=== PATIENT | female | born 1955 | race Caucasian/White ===

== ENCOUNTER 2018-01-07 20:06 | Emergency (ER) | payer OTHER, SELFPAY ==
[2018-01-07 20:16] VITALS: BP 179/104; PULSE 97; RESP 18; TEMP 36.4; O2SAT 98; BMI 33.3
--- NOTE | 2018-01-07 20:17 | ED_ITS ---
HPI - Chest Pain General Chief Complaint: Chest Pain Stated Complaint: CHEST PAIN Time Seen by Provider: 01/07/18 20:15 History of Present Illness HPI narrative: Patient is a 62-year-old female presenting with chest pain. She had a non ST elevated [place] I end of November in [place]. She said she had a heart catheterization which she has pictures of a arterial lesion which was not stented due to location. She was treated medically. She has been taking her medications regularly. For the last 2 days she had intermittent chest pressure/ stabbing. It last for a few seconds and then is gone. Today it became more frequent every couple of minutes. She is not notice if it is worse with exertion or movement. She also just arrived from [place] yesterday. She chronically has shortness of breath she has a history of asthma hard to tell if her breathing is any worse. She denies any fever or productive cough. She has nitro at home but did not take any of them. She has had a dry nonproductive cough since the heart attack in November. Initially thought it was medication reaction she was switched medication she continues to have cough no productive sputum it is not any worse than normal. Related Data Previous Rx's Medication Instructions Recorded benzonatate [Tessalon Perles] 100 mg PO Q4H PRN #30 cap 01/07/18 Allergies Allergy/AdvReac Type Severity Reaction Status Date / Time bee pollen Allergy Verified 01/07/18 20:23 codeine Allergy Verified 01/07/18 20:23 iodine Allergy Verified 01/07/18 20:23 latex Allergy Verified 01/07/18 20:23 morphine Allergy Verified 01/07/18 20:23 Penicillins Allergy Verified 01/07/18 20:23 Sulfa (Sulfonamide Allergy Verified 01/07/18 20:23 Antibiotics) Review of Systems Review of Systems All systems reviewed & are unremarkable except as noted in HPI and below Constitutional Denies chills, Denies fever(s), Denies lethargy and Denies weakness Cardiovascular Reports as per HPI, Reports system reviewed and no additional complaints, except as docu and Denies dyspnea Respiratory Reports system reviewed and no additional complaints, except as docu, Denies change in phlegm color, Reports cough (Dry hacking nonproductive), Denies pain with cough and Denies dyspnea Gastrointestinal Gastrointestinal: Denies abdominal pain, Denies change in bowel habits, Denies diarrhea, Denies nausea and Denies vomiting Musculoskeletal Denies back pain, Denies muscle weakness, Denies numbness and Denies tingling Integumentary/Breasts Denies pruritus, Denies erythema, Denies rash and Denies wounds Neurologic Denies numbness, Denies tingling and Denies weakness PFSH Medical History Non-ST elevated myocardial infarction (Acute) Coronary artery disease (Acute) GERD (gastroesophageal reflux disease) (Acute) Hypertension (Acute) Hyperlipidemia (Acute) Asthma (Acute) Tenosynovitis (Acute) History of hysterectomy (Acute) After cataract, bilateral (Acute) Heart attack (Acute) Rotator cuff injury (Acute) Surgical History History of appendectomy (Acute) Social History marital status: household members: spouse travel history: recent Smoking Status: Never smoker alcohol intake: never substance use type: does not use Exam Initial Vital Signs Initial Vital Signs: Vital Signs Temperature 97.5 F L 01/07/18 20:16 Pulse Rate 97 H 01/07/18 20:16 Respiratory Rate 18 01/07/18 20:16 Blood Pressure 179/104 H 01/07/18 20:16 Pulse Oximetry 98 01/07/18 20:16 Const General: cooperative and well developed Nutritional Appearance: well nourished Orientation: alert, awake, oriented x3 and not confused Neck Neck: normal visual inspection and No JVD Resp Effort & Inspection: normal respiratory effort, able to speak in complete sentences, no respiratory distress and no use of accessory muscles Auscultation: clear to auscultation bilaterally, no rales, no rhonchi and no wheezes Cardio Rate: regular rate Rhythm: regular rhythm Heart Sounds: no click, no gallops, no murmurs and no rubs Pulses: normal peripheral pulses GI Inspection: non-distended Palpation: soft, no hepatosplenomegaly, No guarding, No pulsatile mass and No tender Auscultation: normal bowel sounds Skin General: no rashes or lesions noted, No jaundice and No petechiae Neuro General: alert, awake and oriented x3 Extrem General: normal to inspection, full ROM, no clubbing, cyanosis or edema and no pedal edema Course Orders Ordered: ED Orders 01/07/18 20:10 B Type Natriuretic Peptide Stat Complete Blood Count AUTO DIFF Stat Comprehensive Metabolic Panel Stat Lipase Stat Partial Thromboplastin Time Stat Prothrombin Time INR Stat Troponin with CK Cardiac Panel Stat 01/07/18 20:15 EKG-12 Lead Stat 01/07/18 20:29 CT angio chest PE protocol Stat Sodium Chloride (Normal Saline 0.9%) 1,000 mls @ 150 mls/hr IV CONT JOSE Last Infusion: 01/07/18 22:13 Dose: 0 mls/hr Admin: 01/07/18 20:41 Dose: 1,000 mls/hr Nitroglycerin (Nitrostat) 0.4 mg SL [id number] PRN PRN Reason: Cardiac Arrhythmia Last Admin: 01/07/18 20:29 Dose: 0.4 mg Discontinued Medications Albuterol (Ventolin) 2.5 mg INH NOW ONE Stop: 01/07/18 20:30 Last Admin: 01/07/18 20:36 Dose: 2.5 mg Aspirin (Aspirin Chew) 324 mg PO NOW ONE Stop: 01/07/18 20:16 Last Admin: 01/07/18 20:29 Dose: 324 mg Diphenhydramine HCl (Benadryl) 25 mg IV NOW ONE Stop: 01/07/18 20:30 Last Admin: 01/07/18 20:53 Dose: Methylprednisolone (Solu-Medrol 125 Mg Vial) 125 mg IV NOW ONE Stop: 01/07/18 20:30 Last Admin: 01/07/18 20:38 Dose: 125 mg Nitroglycerin (Nitro-Bid) 2 inch TOP NOW ONE Stop: 01/07/18 20:16 Vital Signs - 8 hr 01/07/18 20:16 01/07/18 20:37 01/07/18 20:41 Temperature 97.5 F L Pulse Rate 97 H 100 H 85 Respiratory Rate 18 20 16 Blood Pressure 179/104 H Blood Pressure [Left Arm] 159/88 H Pulse Oximetry 98 95 96 01/07/18 21:30 01/07/18 22:02 Temperature Pulse Rate 86 85 Respiratory Rate 16 15 Blood Pressure Blood Pressure [Left Arm] 133/66 H 142/68 H Pulse Oximetry 97 97 MDM - Chest Pain Differential Diagnosis Likely stable angina, atypical chest pain, chest pain and other (PE, aortic dissection) Lab Data Attestation: I reviewed the patient's lab results. Result diagrams: 01/07/18 20:10 01/07/18 20:10 Lab Results 06/02/1701/07/18 01/07/18 Range/Units 20:10 20:10 20:10 WBC 6.9 (4.5-11.0) X10^3/uL RBC 4.62 (4.0-5.2) X10^6/uL Hgb 13.6 (12.0-16.0) g/dL Hct 40.5 (36-46) % MCV 87.6 (80-100) fL MCH 29.5 (26-34) PG MCHC 33.7 (30-36) % RDW 14.5 (11.6-14.8) % Plt Count 198 (150-400) X10^3/uL Neut % (Auto) 61.2 (50-75) % Lymph % (Auto) 24.2 L (25-40) % [place] % (Auto) 11.4 (3-14) % Eos % (Auto) 2.4 (2-4) % Baso % (Auto) 0.8 (0-2) % Neut # (Auto) 4200 (0803-7420) /uL PT 10.5 (10.1-12.7) SECONDS INR 1.0 (0.9-1.3) APTT 26 L (26.4-36.2) SECONDS Sodium 143 (137-145) mmol/L Potassium 3.2 L (3.4-5.1) mmol/L Chloride 102 (98-107) mmol/L Carbon Dioxide 27 (22-32) mmol/L BUN 18 H (7-17) mg/dL Creatinine 0.70 (0.52-1.04) mg/dL Estimated GFR > 60.0 (>60) mL/min BUN/Creatinine Ratio 25.7 H (6-22) Glucose 84 (80-110) mg/dL Calcium 10.2 (8.4-10.2) mg/dL Total Bilirubin 0.4 (0.2-1.3) mg/dL AST 40 H (14-36) IU/L ALT 47 (9-52) IU/L Alkaline Phosphatase 54 (38-126) U/L Total Creatine Kinase 94 (30-135) U/L Troponin I < 0.012 (0.01-0.034) ng/mL B-Natriuretic Peptide 106.0 H (<29.3) Total Protein 7.6 (6.3-8.2) g/dL Albumin 4.7 (3.5-5.0) g/dL Globulin 2.9 (1.7-4.1) g/dL Albumin/Globulin Ratio 1.6 (1.0-2.8) Lipase 109 (23-300) U/L Imaging Data CT-PE: Radiologist's impression: PROCEDURE: CT ANGIO CHEST PE PROTOCOL INDICATIONS: Shortness of breath, recent flight and hospital TECHNIQUE: After the administration of intravenous contrast, 2 mm thick sections acquired from the pulmonary apices to the posterior costophrenic angles. 3-dimensional maximum intensity projection (MIP) coronal and sagittal reformats were then acquired through the thorax. For radiation dose reduction, the following was used: automated exposure control, adjustment of mA and/or kV according to patient size. COMPARISON: 04/29/2013. FINDINGS: Image quality: Excellent. Pulmonary arteries: Pulmonary arteries are normal in size, and demonstrate no intraluminal filling defects to suggest central pulmonary embolism. Lungs and pleura: Lungs are clear. No pleural effusions or pneumothorax. Central and peripheral airways are patent. Mediastinum: Heart size is normal, without pericardial effusion. No mediastinal or hilar adenopathy. Thoracic aorta is normal in caliber and enhancement. Esophagus is normal in caliber, with small hiatal hernia. Bones and chest wall: No suspicious bony lesions. Ribs and thoracic spine appear intact throughout. Thyroid gland is normal where seen. No axillary or supraclavicular adenopathy. Abdomen: There is a new 3.5 cm partially visualized inferior right lobe of the liver nodule. upper abdominal solid organs appear normal in the early arterial phase of enhancement. IMPRESSION: 1. No CT evidence of acute cardiopulmonary pathology. 2. New partially visualized hepatic nodule. Recommend evaluation with ultrasound when patient is able. Dictated by: Felice Batista M.D. on 01/07/2018 at 21:41 Approved by: Felice Batista M.D. on 01/07/2018 at 21:47 ECG Data Attestation: I personally reviewed and interpreted this ECG as follows: Prior ECG tracings: not available for review Interpretation: Normal sinus rhythm rate [address]-T changes, Q-waves noted in lead 3 nonspecific T-wave changes. No prior to compare. [facility] Narrative Medical decision making narrative: Patient has had 2 days of intermittent sharp stabbing chest pain lasting only a few seconds. Troponin negative CT negative for PE. Nitroglycerin only helped some. She has appointment with her new primary provider tomorrow. She is supposed to get set up with local engineering psychologist. Her nonproductive cough I think is likely medication related. No sign of infection. I discussed all findings with the patient [and /spouse mother], Education has been performed regarding treatment plan, diagnosis, warning signs and symptoms and all concerns have been addressed. Verbally agree with and understood all of the above. Discharge Plan Departure Patient Disposition: Home, Self-Care Clinical Impression: Atypical chest pain Discharge Date/Time: 01/07/18 22:17 Instructions: DI for Atypical Chest Pain Activity Restrictions/Additional Instructions: *You have been diagnosed with atypical chest pain *What to do: CT and blood work within normal limits at today. *Continue to take medications as directed Candy Callejas as needed *Follow up with your primary care provider tomorrow as previously scheduled. He will need to be set up with Cardiology and possible cardiac rehab *Return to ER if you should have new or worsening chest discomfort, increasing shortness of breath, or any new, worsening or concerning symptoms Prescriptions: New benzonatate [Tessalon Perles] 100 mg capsule 100 mg PO Q4H PRN (Reason: cough) Qty: 30 RF: 0 Referrals: [facility] [Outside] Loni Smith ARNP [Non-Staff] - Magaly Rivera PA-C [Primary Care Provider] -
[2018-01-07] MEDS: ASPIRIN 81 MG TAB 324 MG PO (20:29)
[2018-01-07] MEDS: NITROGLYCERIN 0.4 MG SL TAB SL (20:29)
--- NOTE | 2018-01-07 20:29 | DI.CT.S_ITS ---
PROCEDURE: CT ANGIO CHEST PE PROTOCOL INDICATIONS: Shortness of breath, recent flight and hospital TECHNIQUE: After the administration of intravenous contrast, 2 mm thick sections acquired from the pulmonary apices to the posterior costophrenic angles. 3-dimensional maximum intensity projection (MIP) coronal and sagittal reformats were then acquired through the thorax. For radiation dose reduction, the following was used: automated exposure control, adjustment of mA and/or kV according to patient size. COMPARISON: 04/29/2013. FINDINGS: Image quality: Excellent. Pulmonary arteries: Pulmonary arteries are normal in size, and demonstrate no intraluminal filling defects to suggest central pulmonary embolism. Lungs and pleura: Lungs are clear. No pleural effusions or pneumothorax. Central and peripheral airways are patent. Mediastinum: Heart size is normal, without pericardial effusion. No mediastinal or hilar adenopathy. Thoracic aorta is normal in caliber and enhancement. Esophagus is normal in caliber, with small hiatal hernia. Bones and chest wall: No suspicious bony lesions. Ribs and thoracic spine appear intact throughout. Thyroid gland is normal where seen. No axillary or supraclavicular adenopathy. Abdomen: There is a new 3.5 cm partially visualized inferior right lobe of the liver nodule. upper abdominal solid organs appear normal in the early arterial phase of enhancement. IMPRESSION: 1. No CT evidence of acute cardiopulmonary pathology. 2. New partially visualized hepatic nodule. Recommend evaluation with ultrasound when patient is able. Dictated by: Felice Batista M.D. on 01/07/2018 at 21:41 Approved by: Felice Batista M.D. on 01/07/2018 at 21:47
[2018-01-07 20:32] LABS: Add Manual Diff / Slide Review NO; Basophils Percent Auto 0.8 % (0-2); Eosinophils Percent Auto 2.4 % (2-4); Hematocrit 40.5 % (36-46); Hemoglobin 13.6 g/dL (12.0-16.0); Lymphocytes Percent Auto 24.2 % (25-40); Mean Corpuscular HGB Conc 33.7 % (30-36); Mean Corpuscular Hemoglobin 29.5 PG (26-34); Mean Corpuscular Volume 87.6 fL (80-100); Monocytes Percent Auto 11.4 % (3-14); Neutrophils Absolute Auto 4200 /uL (3000-5900); Neutrophils Percent Auto 61.2 % (50-75); Platelet Count 198 X10^3/uL (150-400); Red Blood Cell Count 4.62 X10^6/uL (4.0-5.2); Red Cell Distribution Width 14.5 % (11.6-14.8); White Blood Cell Count 6.9 X10^3/uL (4.5-11.0)
[2018-01-07 20:33] LABS: Prothrombin Time 10.5 SECONDS (10.1-12.7)
[2018-01-07 20:36] LABS: PTT Partial Thromboplastin Tim 26 SECONDS (26.4-36.2)
[2018-01-07] MEDS: ALBUTEROL 2.5 MG/3 ML NEB INH (20:36)
[2018-01-07 20:37] VITALS: BP 159/88; PULSE 100; RESP 20; O2SAT 95
[2018-01-07] MEDS: methylPREDNISolone 125 MG/2 ML VIAL IV (20:38)
[2018-01-07 20:39] LABS: Alanine Aminotransferase 47 IU/L (9-52); Albumin 4.7 g/dL (3.5-5.0); Albumin Globulin Ratio 1.6 (1.0-2.8); Alkaline Phosphatase 54 U/L (38-126); Aspartate Aminotransferase 40 IU/L (14-36); BUN Creatinine Ratio 25.7 (6-22); Bilirubin Total 0.4 mg/dL (0.2-1.3); Blood Urea Nitrogen 18 mg/dL (7-17); Calcium 10.2 mg/dL (8.4-10.2); Carbon Dioxide 27 mmol/L (22-32); Chloride 102 mmol/L (98-107); Creatine Kinase 94 U/L (30-135); Estimated Glomerular Filt Rate > 60.0 mL/min (>60); Globulin 2.9 g/dL (1.7-4.1); Glucose 84 mg/dL (80-110); HEMOLYSIS < 15 (0-50); Lipase 109 U/L (23-300); Potassium 3.2 mmol/L (3.4-5.1); Sodium 143 mmol/L (137-145); Total Protein 7.6 g/dL (6.3-8.2)
[2018-01-07 20:41] VITALS: PULSE 85; RESP 16; O2SAT 96
[2018-01-07] MEDS: SODIUM CHLORIDE 0.9% 1,000 ML 1000 ML IV (20:41)
[2018-01-07 20:51] LABS: Troponin I < 0.012 ng/mL (0.01-0.034)
[2018-01-07 21:30] VITALS: BP 133/66; PULSE 86; RESP 16; O2SAT 97
[2018-01-07 22:02] VITALS: BP 142/68; PULSE 85; RESP 15; O2SAT 97
[2018-01-07 22:17] VITALS: BP 148/64; PULSE 74; RESP 18; TEMP 36.9; O2SAT 99
== END 2018-01-07 22:17 | disposition home or self-care (01) ==
PROVIDERS: Emergency Provider Emergency Medicine; PCP Physician Assistant
DX: R07.89 Other chest pain (principal)
CPT/HCPCS: 36591; 71275; 80053; 82550; 82553; 83690; 83880; 84484; 85025; 85610; 85730; 93005; 94640; 96374; 96375; 99283; 99285; J1200; J2930; J7613; Q9967

== ENCOUNTER → 2018-02-26 07:32 | Outpatient (CLI) | payer OTHER, SELFPAY ==
--- NOTE | 2018-02-26 | DI.US.S_ITS ---
PROCEDURE: US ABDOMEN LIMITED INDICATIONS: HEPATIC NODULE TECHNIQUE: Real-time focused scanning was performed of the abdomen, with image documentation. COMPARISON: [facility], CT, CT ANGIO CHEST PE PROTOCOL, 01/07/2018, 20:46. FINDINGS: The partially visualized hepatic nodule on prior CT imaging is shown to represent a simple cyst in the anterior, inferior pole of the right lobe of the liver. The cysts measures 3.7 x 4.7 x 5.0 cm. No other liver lesions seen. IMPRESSION: Simple hepatic cyst Dictated by: Arjun Bailye M.D. on 02/26/2018 at 9:56 Approved by: Arjun Bailey M.D. on 02/26/2018 at 9:58
== END ==
PROVIDERS: PCP Physician Assistant; Visit Provider Nurse Practitioner Family
DX: K76.89 Other specified diseases of liver (principal)
CPT/HCPCS: 76705

== ENCOUNTER → 2020-02-24 15:06 | Outpatient (CLI) | payer MEDICARE, SELFPAY | PROVIDERS: PCP Internal Medicine; Referring Provider Internal Medicine; Visit Provider Internal Medicine | DX: M85.851 Other specified disorders of bone density and structure, right thigh (principal); Z78.0 Asymptomatic menopausal state | CPT/HCPCS: 77080 ==

== ENCOUNTER → 2020-08-30 14:35 | Outpatient (CLI) | payer MEDICARE, SELFPAY ==
[2020-08-30] MEDS: COVID-19 VACC #1, MRNA(MOD) 100 MCG/0.5 ML VIAL IM (14:40)
== END ==
PROVIDERS: PCP Internal Medicine; Visit Provider Internal Medicine
DX: Z23 Encounter for immunization (principal)
CPT/HCPCS: 0011A; 91301

== ENCOUNTER → 2020-09-05 17:05 | Outpatient (ROUT) | payer MEDICARE, SELFPAY ==
[2020-09-05 17:15] LABS: Add Manual Diff / Slide Review NO; Basophils Absolute Auto 100 /uL (0-100); Basophils Percent Auto 1.1 % (0-2); Eosinophils Absolute Auto 200 /uL (0-450); Hematocrit 41.6 % (36-46); Hemoglobin 13.8 g/dL (12.0-16.0); Lymphocytes Absolute Auto 1400 /uL (1100-4500); Lymphocytes Percent Auto 29.4 % (25-40); Mean Corpuscular HGB Conc 33.2 % (30-36); Mean Corpuscular Hemoglobin 28.4 PG (26-34); Mean Corpuscular Volume 85.5 fL (80-100); Monocytes Absolute Auto 600 /uL (0-900); Monocytes Percent Auto 11.7 % (3-14); Neutrophils Absolute Auto 2500 /uL (1500-7000); Neutrophils Percent Auto 52.8 % (50-75); Platelet Count 211 X10^3/uL (150-400); Red Blood Cell Count 4.86 X10^6/uL (4.0-5.2); White Blood Cell Count 4.8 X10^3/uL (4.5-11.0)
[2020-09-05 17:30] LABS: Alanine Aminotransferase 64 IU/L (<35); Albumin 4.3 g/dL (3.5-5.0); Albumin Globulin Ratio 1.5 (1.0-2.8); Alkaline Phosphatase 63 U/L (38-126); Aspartate Aminotransferase 40 IU/L (14-36); BUN Creatinine Ratio 23.8 (6-22); Bilirubin Total 0.3 mg/dL (0.2-1.3); Blood Urea Nitrogen 19 mg/dL (7-17); Calcium 9.8 mg/dL (8.4-10.2); Carbon Dioxide 34 mmol/L (22-32); Chloride 99 mmol/L (98-107); Cholesterol 173 mg/dL (140-199); Estimated Glomerular Filt Rate > 60.0 mL/min (>60); Globulin 2.9 g/dL (1.7-4.1); Glucose 113 mg/dL (80-110); HDL Cholesterol 93 mg/dL (40-60); HEMOLYSIS < 15 (0-50); LDL Cholesterol Calculated 66 mg/dL (<100); Potassium 4.2 mmol/L (3.4-5.1); Sodium 138 mmol/L (137-145); Total Protein 7.2 g/dL (6.3-8.2); Triglycerides 70 mg/dL (35-150)
[2020-09-05 18:00] LABS: TSH w/ Reflex to FT4 3.51 uIU/mL (0.47-4.68)
== END ==
PROVIDERS: PCP Internal Medicine; Visit Provider Internal Medicine
DX: I25.10 Atherosclerotic heart disease of native coronary artery without angina pectoris (principal); E78.70 Disorder of bile acid and cholesterol metabolism, unspecified
CPT/HCPCS: 80053; 80061; 84443; 85025

== ENCOUNTER → 2020-09-27 14:27 | Outpatient (CLI) | payer MEDICARE, SELFPAY ==
[2020-09-27] MEDS: COVID-19 VACC #2, MRNA(MOD) 100 MCG/0.5 ML VIAL IM (14:42)
== END ==
PROVIDERS: PCP Internal Medicine; Visit Provider Internal Medicine
DX: Z23 Encounter for immunization (principal)
CPT/HCPCS: 0012A; 91301

== ENCOUNTER 2020-12-05 14:12 | Emergency (ER) | payer MEDICARE, SELFPAY ==
[2020-12-05] VITALS (13 sets, daily range): BP systolic 139–201; BP diastolic 75–95; PULSE 74–104; RESP 12–24; TEMP 36.4; O2SAT 96–98; BMI 36.5
--- NOTE | 2020-12-05 14:23 | DI.RAD.S_ITS ---
PROCEDURE: XR CHEST 1V INDICATIONS: chest pain TECHNIQUE: One view of the chest was acquired. COMPARISON: [facility], , CHEST 2 VIEW, 04/28/2013, 13:54. FINDINGS: Surgical changes and devices: None. Lungs and pleura: Lungs are clear. No pleural effusions or pneumothorax. Mediastinum: Mediastinal contours appear normal. Heart size is normal. Bones and chest wall: No suspicious bony lesions. Overlying soft tissues appear unremarkable. IMPRESSION: Normal for age, source of current chest pain symptoms is not seen. Dictated by: Martir Callahan M.D. on 12/05/2020 at 14:45 Approved by: Martir Callahan M.D. on 12/05/2020 at 14:46
--- NOTE | 2020-12-05 14:26 | ED.CHESTPAIN ---
HPI - Chest Pain General Chief Complaint: Chest Pain Stated Complaint: heart issues Time Seen by Provider: 12/05/20 14:26 Source: patient Mode of arrival: Ambulatory Limitations: no limitations History of Present Illness HPI narrative: Patient is a 65-year-old female who is here for evaluation of shortness of breath and chest discomfort. She has had evaluation for chest pain in the past and had a cardiac catheterization however no stents were placed. She states that there was 1 artery which could not be stented due to the anatomy.. She does have nitro at home. Over the past week she has had progressively worsening chest discomfort. Last evening she had the chest discomfort and took a nitro and relieved her symptoms. Today symptoms seem to come back somewhat. She did not take a nitro today. She feels very fatigued which is how she felt prior to prior heart attack. Related Data Home Medications Medication Instructions Recorded Confirmed amlodipine 5 mg PO DAILY 12/05/20 12/05/20 aspirin 81 mg PO DAILY 12/05/20 12/05/20 atorvastatin 20 mg PO DAILY 12/05/20 12/05/20 clopidogrel 75 mg PO DAILY 12/05/20 12/05/20 hydrochlorothiazide 25 mg PO DAILY 12/05/20 12/05/20 nitroglycerin 0.4 mg SUBLINGUAL PRN PRN 12/05/20 12/05/20 pantoprazole 40 mg PO BID 12/05/20 12/05/20 venlafaxine 37.5 mg PO DAILY 12/05/20 12/05/20 venlafaxine [Effexor XR] 37.5 mg PO DAILY 12/05/20 12/05/20 Allergies Allergy/AdvReac Type Severity Reaction Status Date / Time bee pollen Allergy Verified 01/07/18 20:23 codeine Allergy Verified 01/07/18 20:23 iodine Allergy Verified 01/07/18 20:23 latex Allergy Verified 01/07/18 20:23 morphine Allergy Verified 01/07/18 20:23 Penicillins Allergy Verified 01/07/18 20:23 Sulfa (Sulfonamide Allergy Verified 01/07/18 20:23 Antibiotics) Review of Systems ENT Ears, Nose, Mouth, and Throat: Denies sore throat Cardiovascular Cardiovascular: Reports chest pain and Reports dyspnea Respiratory Respiratory: Reports dyspnea Gastrointestinal Gastrointestinal: Denies abdominal pain, Denies nausea and Denies vomiting Genitourinary Genitourinary: Denies dysuria Genitourinary: Denies dysuria Musculoskeletal Musculoskeletal: Reports back pain Integumentary/Breasts Skin/Breast: Denies rash Neurologic Neurologic: Denies behavioral changes Psychiatric Psychiatric: Denies behavioral changes Hematologic/Lymphatic On Anticoagulants: No Allergic/Immunologic Allergic/Immunologic: Denies urticaria Patient History Medical History After cataract, bilateral Asthma Coronary artery disease GERD (gastroesophageal reflux disease) Heart attack Hyperlipidemia Hypertension Non-ST elevated myocardial infarction Rotator cuff injury Tenosynovitis Surgical History (Updated 01/07/18 @ 21:50 by Albertina La DO) History of appendectomy History of hysterectomy Social History marital status: household members: spouse travel history: recent Smoking Status: Never smoker alcohol intake: never substance use type: does not use Smoking Status: Never smoker alcohol intake frequency: 0-2 drinks per day Substance Use Type: does not use Exam Initial Vital Signs Initial Vital Signs: Vital Signs Pulse Rate 104 H 12/05/20 14:18 Respiratory Rate 24 12/05/20 14:18 Blood Pressure 201/95 H 12/05/20 14:18 Pulse Oximetry 98 12/05/20 14:18 Const General: cooperative and comfortable Limitations: mental status not altered HENMT Head: normal to inspection and normocephalic Eyes General: appearance normal, both eyes and all related structures Resp Effort & Inspection: normal respiratory effort Auscultation: clear to auscultation bilaterally Cardio Rate: tachycardic Rhythm: regular rhythm GI Inspection: non-distended Palpation: soft Skin Lesions: no lesions Rashes: no rashes Neuro General: patient alert, patient awake and patient oriented x3 Cognition: normal cognition Speech: speech normal Extrem General: normal to inspection and capillary refill normal Psych Appearance: grossly normal and well kempt Course Orders Ordered: ED Orders 12/05/20 14:23 XR chest 1V Stat EKG-12 Lead Stat 12/05/20 14:28 Complete Blood Count AUTO DIFF Stat Comprehensive Metabolic Panel Stat Lipase Stat Partial Thromboplastin Time Stat Prothrombin Time INR Stat Troponin & CK Cardiac Panel Stat 12/05/20 14:55 EKG-12 Lead Stat 12/05/20 18:10 Troponin I Stat Discontinued Medications Aspirin (Aspirin 81 Mg Chew Tab) 324 mg PO NOW ONE Stop: 12/05/20 14:55 Last Admin: 12/05/20 14:58 Dose: 243 mg Documented by: ES Nitroglycerin (Nitroglycerin Oint 1 Inch/Gm Oint...G.) 0.5 inch TOP NOW ONE Stop: 12/05/20 14:55 Last Admin: 12/05/20 14:58 Dose: 0.5 inch Documented by: ES Vital Signs Vital signs: Vital Signs - 8 hr 12/05/20 14:18 12/05/20 14:23 12/05/20 14:30 Temperature 97.6 F Pulse Rate 104 H 101 H 86 Respiratory Rate 24 18 12 Blood Pressure 201/95 H 201/95 H 162/78 H Pulse Oximetry 98 96 98 12/05/20 14:58 12/05/20 15:00 12/05/20 15:05 Temperature Pulse Rate 80 83 78 Respiratory Rate 24 18 Blood Pressure 162/78 H 154/88 H 152/86 H Pulse Oximetry 97 97 12/05/20 15:10 12/05/20 15:15 12/05/20 15:20 Temperature Pulse Rate 79 77 74 Respiratory Rate 22 18 16 Blood Pressure 157/87 H 143/81 H 139/79 Pulse Oximetry 97 98 96 12/05/20 15:25 12/05/20 15:30 12/05/20 15:35 Temperature Pulse Rate 79 75 77 Respiratory Rate 22 16 18 Blood Pressure 168/79 H 155/79 H 142/75 H Pulse Oximetry 97 97 97 MDM - Chest Pain Lab Data Attestation: I reviewed the patient's lab results. Result diagrams: 12/05/20 14:28 12/05/20 14:28 Labs: Lab Results 12/05/20 12/05/20 12/05/20 Range/Units 14:28 14:28 14:28 WBC 5.9 (4.5-11.0) X10^3/uL RBC 4.62 (4.0-5.2) X10^6/uL Hgb 13.2 (12.0-16.0) g/dL Hct 38.9 (36-46) % MCV 84.3 (80-100) fL MCH 28.6 (26-34) PG MCHC 33.9 (30-36) % RDW 15.4 H (11.6-14.8) % Plt Count 209 (150-400) X10^3/uL Neut % (Auto) 48.4 L (50-75) % Lymph % (Auto) 33.1 (25-40) % [place] % (Auto) 14.5 H (3-14) % Eos % (Auto) 3.0 (2-4) % Baso % (Auto) 1.0 (0-2) % Neut # (Auto) 2800 (3122-5894) /uL Lymph # (Auto) 1900 (8752-4338) /uL [place] # (Auto) 900 (0-900) /uL Eos # (Auto) 200 (0-450) /uL Baso # (Auto) 100 (0-100) /uL PT 10.0 L (10.1-12.7) SECONDS INR 0.9 (0.9-1.3) APTT 28 (26.4-36.2) SECONDS Sodium 136 L (137-145) mmol/L Potassium 3.1 L (3.4-5.1) mmol/L Chloride 100 (98-107) mmol/L Carbon Dioxide 27 (22-32) mmol/L BUN 20 H (7-17) mg/dL Creatinine 0.68 (0.52-1.04) mg/dL Estimated GFR > 60.0 (>60) mL/min BUN/Creatinine Ratio 29.4 H (6-22) Glucose 129 H (80-110) mg/dL Calcium 9.9 (8.4-10.2) mg/dL Total Bilirubin 0.3 (0.2-1.3) mg/dL AST 51 H (14-36) IU/L ALT 77 H (<35) IU/L Alkaline Phosphatase 70 (38-126) U/L Total Creatine Kinase 186 H (30-135) U/L CK-MB (CK-2) 1.75 (<2.37) ng/mL CK-MB (CK-2) Rel Index 0.9 L (1.5-5.0) % Troponin I < 0.012 (0.01-0.034) ng/mL Total Protein 7.3 (6.3-8.2) g/dL Albumin 4.5 (3.5-5.0) g/dL Globulin 2.8 (1.7-4.1) g/dL Albumin/Globulin Ratio 1.6 (1.0-2.8) Lipase 81 (23-300) U/L /12/21 Range/Units 18:10 WBC (4.5-11.0) X10^3/uL RBC (4.0-5.2) X10^6/uL Hgb (12.0-16.0) g/dL Hct (36-46) % MCV (80-100) fL MCH (26-34) PG MCHC (30-36) % RDW (11.6-14.8) % Plt Count (150-400) X10^3/uL Neut % (Auto) (50-75) % Lymph % (Auto) (25-40) % [place] % (Auto) (3-14) % Eos % (Auto) (2-4) % Baso % (Auto) (0-2) % Neut # (Auto) (4863-0743) /uL Lymph # (Auto) (6094-1756) /uL [place] # (Auto) (0-900) /uL Eos # (Auto) (0-450) /uL Baso # (Auto) (0-100) /uL PT (10.1-12.7) SECONDS INR (0.9-1.3) APTT (26.4-36.2) SECONDS Sodium (137-145) mmol/L Potassium (3.4-5.1) mmol/L Chloride (98-107) mmol/L Carbon Dioxide (22-32) mmol/L BUN (7-17) mg/dL Creatinine (0.52-1.04) mg/dL Estimated GFR (>60) mL/min BUN/Creatinine Ratio (6-22) Glucose (80-110) mg/dL Calcium (8.4-10.2) mg/dL Total Bilirubin (0.2-1.3) mg/dL AST (14-36) IU/L ALT (<35) IU/L Alkaline Phosphatase (38-126) U/L Total Creatine Kinase (30-135) U/L CK-MB (CK-2) (<2.37) ng/mL CK-MB (CK-2) Rel Index (1.5-5.0) % Troponin I < 0.012 (0.01-0.034) ng/mL Total Protein (6.3-8.2) g/dL Albumin (3.5-5.0) g/dL Globulin (1.7-4.1) g/dL Albumin/Globulin Ratio (1.0-2.8) Lipase (23-300) U/L Imaging Data Chest x-ray: Radiologist's Impression: [address] [id number] ReportSigned Patient: Faith Davison AMR#: [id number]: 4Acct:[id number]/Sex: 65 / FDate of Service: 12/05/20Loc: EDAccession Number: [id number] Procedure: XR chest 1V Ordering Provider: Guy Tilley D.O. PROCEDURE: XR CHEST 1V INDICATIONS: chest pain TECHNIQUE: One view of the chest was acquired. COMPARISON: [facility], CHEST 2 VIEW, 04/28/2013, 13:54. FINDINGS: Surgical changes and devices: None. Lungs and pleura: Lungs are clear. No pleural effusions or pneumothorax. Mediastinum: Mediastinal contours appear normal. Heart size is normal. Bones and chest wall: No suspicious bony lesions. Overlying soft tissues appear unremarkable. IMPRESSION: Normal for age, source of current chest pain symptoms is not seen. Dictated by: Martir Callahan M.D. on 12/05/2020 at 14:45 Approved by: Martir Callahan M.D. on 12/05/2020 at 14:46 ECG Data Attestation: I personally reviewed and interpreted this ECG as follows: Prior ECG tracings: not available for review Interpretation: Sinus rhythm Ventricular rate 94 Sinus arrhythmia Normal QRS Normal QTC No ST T wave changes Repeat EKG Sinus rhythm Ventricular rate is 78 Normal QRS Normal QTC No ST T wave changes MDM Narrative Medical decision making narrative: Patient has 2 nonischemic EKGs. Her troponins are negative x2 with the 2nd greater than 3 hours after the 1st. Given her history and the fact that her symptoms improved with nitro I do have some moderate concerned about ACS. I did discuss with her risks with this. We did discuss options to include being discharged home versus staying for 2nd troponin versus being transferred for further risk stratification to include stress testing and potential catheterization. We did discuss the risks and benefits of all of these options. After this discussion she opted to stay for the 2nd troponin which was eventually negative. She has nitroglycerin at home. 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 She was given strict return precautions. She expressed understanding and agreement. Discharge Plan Departure Patient Disposition: Home Clinical Impression: Chest pain Instructions: DI for Chest Pain Activity Restrictions/Additional Instructions: After our discussion you opted to be discharged home after the 2nd troponin (both of which were negative) which is very reassuring. I recommend you continue all of your medications as directed. Contact your primary doctor and also your pipe smoking machine offbearer for close follow-up and to discuss the indications for stress test. Please return to the emergency department for any new or worsening symptoms Prescriptions: No Action venlafaxine [Effexor XR] 37.5 mg capsule,extended release 24hr 37.5 mg PO DAILY RF: 0 venlafaxine 37.5 mg capsule,extended release 24hr 37.5 mg PO DAILY RF: 0 atorvastatin 20 mg tablet 20 mg PO DAILY RF: 0 clopidogrel 75 mg tablet 75 mg PO DAILY RF: 0 amlodipine 5 mg tablet 5 mg PO DAILY RF: 0 pantoprazole 40 mg tablet,delayed release (DR/EC) 40 mg PO BID RF: 0 nitroglycerin 0.4 mg tablet, sublingual 0.4 mg sublingual PRN PRN (Reason: Chest Pain) RF: 0 hydrochlorothiazide 25 mg tablet 25 mg PO DAILY RF: 0 aspirin 81 mg PO DAILY RF: 0 Referrals: Edgar Stockton MD [Primary Care Provider] -
[2020-12-05] MEDS: ASPIRIN 81 MG CHEW TAB 324 MG PO (14:58)
[2020-12-05] MEDS: NITROGLYCERIN OINT 1 INCH/GM OINT...G. 0.5 INCH TOP (14:58)
--- NOTE | 2020-12-05 15:07 | PC.NURSE ---
Pt reports pressure increased and now having some pain in her middle back like she was last night. MD notified. Orders received for aspirin and nitro paste. Repeat EKG being done now.
[2020-12-05 15:11] LABS: Add Manual Diff / Slide Review NO; Basophils Absolute Auto 100 /uL (0-100); Eosinophils Absolute Auto 200 /uL (0-450); Hematocrit 38.9 % (36-46); Hemoglobin 13.2 g/dL (12.0-16.0); Lymphocytes Absolute Auto 1900 /uL (1100-4500); Lymphocytes Percent Auto 33.1 % (25-40); Mean Corpuscular HGB Conc 33.9 % (30-36); Mean Corpuscular Hemoglobin 28.6 PG (26-34); Mean Corpuscular Volume 84.3 fL (80-100); Monocytes Absolute Auto 900 /uL (0-900); Monocytes Percent Auto 14.5 % (3-14); Neutrophils Absolute Auto 2800 /uL (1500-7000); Neutrophils Percent Auto 48.4 % (50-75); Platelet Count 209 X10^3/uL (150-400); Red Blood Cell Count 4.62 X10^6/uL (4.0-5.2); Red Cell Distribution Width 15.4 % (11.6-14.8); White Blood Cell Count 5.9 X10^3/uL (4.5-11.0)
[2020-12-05 15:17] LABS: INR 0.9 (0.9-1.3)
[2020-12-05 15:20] LABS: PTT Partial Thromboplastin Tim 28 SECONDS (26.4-36.2)
[2020-12-05 15:22] LABS: Alanine Aminotransferase 77 IU/L (<35); Albumin 4.5 g/dL (3.5-5.0); Albumin Globulin Ratio 1.6 (1.0-2.8); Alkaline Phosphatase 70 U/L (38-126); Aspartate Aminotransferase 51 IU/L (14-36); BUN Creatinine Ratio 29.4 (6-22); Bilirubin Total 0.3 mg/dL (0.2-1.3); Blood Urea Nitrogen 20 mg/dL (7-17); Calcium 9.9 mg/dL (8.4-10.2); Carbon Dioxide 27 mmol/L (22-32); Chloride 100 mmol/L (98-107); Creatine Kinase 186 U/L (30-135); Estimated Glomerular Filt Rate > 60.0 mL/min (>60); Globulin 2.8 g/dL (1.7-4.1); Glucose 129 mg/dL (80-110); HEMOLYSIS < 15 (0-50); Lipase 81 U/L (23-300); Potassium 3.1 mmol/L (3.4-5.1); Sodium 136 mmol/L (137-145); Total Protein 7.3 g/dL (6.3-8.2)
[2020-12-05 15:34] LABS: Troponin I < 0.012 ng/mL (0.01-0.034)
[2020-12-05 15:37] LABS: CKMB % Relative Index 0.9 % (1.5-5.0); Creatine Kinase MB 1.75 ng/mL (<2.37)
[2020-12-05 18:38] LABS: Troponin I < 0.012 ng/mL (0.01-0.034)
== END 2020-12-05 19:00 | disposition home or self-care (01) ==
PROVIDERS: Emergency Provider Emergency Medicine; PCP Internal Medicine
DX: R07.9 Chest pain, unspecified (principal); R06.02 Shortness of breath
CPT/HCPCS: 36415; 71045; 80053; 82550; 82553; 83690; 84484; 85025; 85610; 85730; 93005; 99284

== ENCOUNTER → 2020-12-19 15:09 | Outpatient (ROUT) | payer MEDICARE, SELFPAY ==
[2020-12-20 09:06] LABS: Hepatitis B Surf Ab Qualitativ Non Reactive (.)
[2020-12-20 16:32] LABS: Hepatitis B Surface Antigen NEGATIVE s/c (NEGATIVE)
[2020-12-20 16:44] LABS: Hep C Virus Ab w/Reflex Quant NEGATIVE s/c (NEGATIVE)
== END ==
PROVIDERS: PCP Internal Medicine; Visit Provider Internal Medicine
DX: R94.5 Abnormal results of liver function studies (principal); Z20.5 Contact with and (suspected) exposure to viral hepatitis
CPT/HCPCS: 86706; 86803; 87340

== ENCOUNTER → 2021-01-23 11:29 | Outpatient (CLI) | payer MEDICARE, SELFPAY ==
[2021-01-23 12:52] LABS: COVID19 -Nasal RAPID Negative (Negative)
== END ==
PROVIDERS: PCP Internal Medicine; Visit Provider Physician Assistant
DX: Z01.812 Encounter for preprocedural laboratory examination (principal); Z20.822 Contact with and (suspected) exposure to COVID-19
CPT/HCPCS: 87635; C9803

== ENCOUNTER → 2021-01-25 10:44 | Outpatient (CLI) | payer MEDICARE, SELFPAY ==
--- NOTE | 2021-01-28 18:09 | DI.NM.S_ITS ---
DATE OF SERVICE: 01/25/2021 PROCEDURE: Exercise perfusion study. INDICATIONS: Known coronary artery disease with underlying hypertension and hyperlipidemia. RADIOPHARMACEUTICAL: 25.3 millicurie technetium-99m Myoview IV was injected at stress and 24.8 millicurie technetium-99m Myoview IV was injected at rest. CARDIAC STRESS: The patient underwent exercise perfusion study under the supervision of an attending staff. She walked on Carlos protocol for 5 minute and achieved 101 percent of target heart rate. Maximum heart rate was 155 beats per minute. Baseline blood pressure 140/82. Peak blood pressure 210/80. Baseline heart rate was about 96 beats per minute. The patient felt fatigue, shortness of breath, as well as had moderate substernal chest discomfort, which resulted in discontinuation of treadmill. Baseline EKG revealed sinus rhythm with QS complexes in V1 to V2. During stress, there were some nonspecific ST changes. No convincing significant arrhythmias. RAW DATA: There was significant breast shadow seen. GATED STUDY: Stress LV ejection fraction 93 percent without any obvious wall motion abnormalities. Resting end-diastolic volume 76 mL. TID ratio 0.72, which is within normal limits. Lung/heart ratio 0.27, which is within normal limits. MYOCARDIAL PERFUSION: Stress supine, resting supine and stress prone images were compared to each other. During stress supine, there was minimally decreased perfusion of distal anterior wall, which got completely resolved during stress prone images, suggestive of breast tissue attenuation artifact. No convincing ischemia or infarction pattern seen on perfusion scan. CONCLUSIONS: This is a normal myocardial perfusion study with evidence of a small breast tissue attenuation artifact, which got completely resolved during stress prone images. However, the patient has a diminished exercise tolerance. During exercise, patient had moderate substernal chest pain, fatigue and shortness of breath. There were no convincing ischemic changes or arrhythmias. Hypertensive blood pressure response, as well as enhanced chronotropic response. The patient has known coronary artery disease with underlying hypertension and hyperlipidemia. As far as perfusion scan is concerned, this is a low-risk myocardial perfusion scan. However, in view of retrosternal chest discomfort, consistent with angina, if needed, repeat left heart catheterization. Saman Faith - Danae/severiano doc#: [id number]/job#: [id number] dd: 01/28/2021 17:06:00 dt: 01/28/2021 17:34:00 DICTATING MD/COPIES TO: Noreen Miller MD COPIES MNE: KYLE;
== END ==
PROVIDERS: PCP Internal Medicine; Referring Provider Internal Medicine; Visit Provider Internal Medicine
DX: I25.118 Atherosclerotic heart disease of native coronary artery with other forms of angina pectoris (principal); I10 Essential (primary) hypertension; E78.5 Hyperlipidemia, unspecified
CPT/HCPCS: 78452; 93017; A9502

== ENCOUNTER → 2021-09-24 15:57 | Outpatient (CLI) | payer MEDICARE, SELFPAY ==
--- NOTE | 2021-09-24 | DI.MG.S_ITS ---
BILATERAL DIGITAL SCREENING MAMMOGRAM 3D/2D WITH CAD: 09/24/2021 CLINICAL: Routine screening. Comparison is made to exams dated: 12/26/2011 mammogram, 01/11/2007 mammogram, and 06/23/2005 mammogram - [facility]. The tissue of both breasts is predominantly fatty. Current study was also evaluated with a Computer Aided Detection (CAD) system. No significant masses, calcifications, or other findings are seen in either breast. There has been no significant interval change. IMPRESSION: NEGATIVE There is no mammographic evidence of malignancy. A 1 year screening mammogram is recommended. This exam was interpreted at Station ID: [id number]. NOTE: For mammograms, a report in lay terms will be sent to the patient. Approximately 15% of breast malignancies will not be visualized mammographically. In the management of a palpable breast mass, a negative mammogram must not discourage biopsy of a clinically suspicious lesion. Electronically Signed By: Vidal Dickens M.D., jr/francisca:09/25/2021 09:34:50 letter sent: Normal Exam ACR BI-RADS Category 1: Negative 3341F
== END ==
PROVIDERS: PCP Internal Medicine; Referring Provider Internal Medicine; Visit Provider Internal Medicine
DX: Z12.31 Encounter for screening mammogram for malignant neoplasm of breast (principal)
CPT/HCPCS: 77063; 77067

== ENCOUNTER → 2022-01-02 09:49 | Outpatient (CLI) | payer MEDICARE, SELFPAY ==
[2022-01-02 11:04] LABS: Hematocrit 39.2 % (36-46); Hemoglobin 13.1 g/dL (12.0-16.0); Mean Corpuscular HGB Conc 33.5 % (30-36); Mean Corpuscular Volume 83.5 fL (80-100); Platelet Count 215 X10^3/uL (150-400); Red Cell Distribution Width 14.9 % (11.6-14.8); White Blood Cell Count 4.5 X10^3/uL (4.5-11.0)
[2022-01-02 11:52] LABS: Alanine Aminotransferase 25 IU/L (<35); Albumin 4.5 g/dL (3.5-5.0); Albumin Globulin Ratio 1.6 (1.0-2.8); Alkaline Phosphatase 58 U/L (38-126); Aspartate Aminotransferase 30 IU/L (14-36); Bilirubin Total 0.5 mg/dL (0.2-1.3); Blood Urea Nitrogen 21 mg/dL (7-17); Calcium 9.2 mg/dL (8.4-10.2); Carbon Dioxide 30 mmol/L (22-32); Chloride 101 mmol/L (98-107); Cholesterol 191 mg/dL (140-199); Estimated Glomerular Filt Rate > 60 mL/min (>60); Globulin 2.9 g/dL (1.7-4.1); Glucose 107 mg/dL (80-110); HDL Cholesterol 103 mg/dL (40-60); HEMOLYSIS < 15 (0-50); LDL Cholesterol Calculated 74 mg/dL (<100); Potassium 3.4 mmol/L (3.4-5.1); Sodium 138 mmol/L (137-145); Total Protein 7.4 g/dL (6.3-8.2); Triglycerides 68 mg/dL (35-150)
[2022-01-02 12:07] LABS: TSH w/ Reflex to FT4 2.54 uIU/mL (0.47-4.68)
== END ==
PROVIDERS: PCP Internal Medicine; Referring Provider Internal Medicine; Visit Provider Internal Medicine
DX: I10 Essential (primary) hypertension (principal); I25.10 Atherosclerotic heart disease of native coronary artery without angina pectoris
CPT/HCPCS: 36415; 80053; 80061; 84443; 85027

== ENCOUNTER → 2022-04-14 11:29 | Outpatient (CLI) | payer MEDICARE, SELFPAY ==
[2022-04-14 16:23] LABS: COVID19 -Nasal RAPID Negative (Negative)
== END ==
PROVIDERS: PCP Internal Medicine; Visit Provider Surgery
DX: Z01.812 Encounter for preprocedural laboratory examination (principal); Z20.822 Contact with and (suspected) exposure to COVID-19
CPT/HCPCS: 87635; C9803

== ENCOUNTER 2022-04-15 11:16 | Day surgery (SDC) | payer MEDICARE, SELFPAY ==
--- NOTE | 2022-04-15 | PATH_ITS ---
[facility] Accession Number: [id number] . 01 Material submitted: . PART A: gastrointestinal site - ANTRAL POLYP PART B: gastrointestinal site - MID GASTRIC BODY POLYP PART C: esophagus, E-G Junction - GE JUNCTION MASS PART D: colon - SIGMOID COLON POLYP . 01 Diagnosis: A. Antral Polyp, Biopsy: Histologic features consistent with gastric hyperplastic polyp. Negative for Helicobacter pylori organisms on H/E stain. No intestinal metaplasia, dysplasia or malignancy. . B. Mid Gastric Body Polyp, Biopsy: Histologic features consistent with gastric hyperplastic polyp. Negative for Helicobacter pylori organisms on H/E stain. No intestinal metaplasia, dysplasia or malignancy. . C. Gastroesophageal Junction Mass, Biopsy: Mixed hyperplastic and fundic gland polyp with associated ulceration. Negative for Helicobacter pylori organisms on H/E stain. No intestinal metaplasia, dysplasia or malignancy. . D. Sigmoid Colon Polyp, Biopsy: Tubular adenoma. [facility] 04/17/2022 1339 Local . 01 Comment: As part of ongoing quality specialist, part C of this case is also reviewed by , who concurs with the given interpretation. . 01 Electronically signed: . Jessica Ramos MD, Pathologist NPI- [id number] . 01 Gross description: . Part A: ANTRAL POLYP: Received in formalin are minute fragment(s) of gill, soft tissue measuring 0.3 x 0.3 x 0.1 cm in aggregate submitted entirely in 1 cassette(s) Part B: MID GASTRIC BODY POLYP: Received in formalin is 1 fragment(s) of gill, soft tissue measuring 0.3 x 0.3 x 0.2 cm submitted entirely in 1 cassette(s) Part C: GE JUNCTION MASS: Received in formalin are multiple fragment(s) of gill, soft tissue measuring 0.5 x 0.5 x 0.2 cm in aggregate submitted entirely in 1 cassette(s) Part D: SIGMOID COLON POLYP: Received in formalin is 1 fragment(s) of gill, soft tissue measuring 0.6 x 0.4 x 0.3 cm submitted entirely in 1 cassette(s) /QBJ 04/16/2022 1048 Local . 01 Pathologist provided ICD-10: D13.1, D12.5 . 01 CPT . 668533, 280482, 161328, 555560 Specimen Comment: A courtesy copy of this report has been sent to [phone] Performed at: 01 [facility] [address] [place] [address] [address] [facility], [place], [place] [id number] MD Horacio Ortiz MD Phone: [phone]
[2022-04-15] MEDS: LACTATED RINGERS 1,000 ML 100 ML IV (11:32)
[2022-04-15 11:48] VITALS: BP 159/90; PULSE 82; RESP 16; TEMP 36.3; O2SAT 97; BMI 33.3
--- NOTE | 2022-04-15 12:13 | PM.HP.1 ---
History of Present Illness History of Present Illness Date Patient Seen: 04/15/22 Time Patient Seen: 12:13 Chief complaint: EGD/COLONOSCOPY Narrative: Mary is here for her EGD and colonoscopy today. See office note from January for details. She reports dysphagia and she is due for colonoscopy. Patient History Medical History (Updated 01/14/22 @ 09:10 by Gayle Mosquera) Allergies (~1979) Asthma (~1979) Bilateral tinnitus Carpal tunnel syndrome (~2001) Chronic cough Coronary artery disease Essential hypertension Foot pain (~1999) Fractures Generalized anxiety disorder GERD (gastroesophageal reflux disease) Heart attack History of colon polyps Impaired fasting glucose Knee pain Left knee pain Measles Medicare annual wellness visit, initial Mixed hyperlipidemia Mumps [place] (nonalcoholic steatohepatitis) Non-ST elevated myocardial infarction Obesity (BMI 35.0-39.9 without comorbidity) Obstructive sleep apnea (adult) (pediatric) Rotator cuff injury Sleep apnea (~2010) SVT (supraventricular tachycardia) Tenosynovitis Tinnitus Vertigo (~2017) Surgical History (Updated 01/14/22 @ 09:10 by Gayle Mosquera) Anesthesia History of appendectomy History of cataract removal with insertion of prosthetic lens (~2011) History of hysterectomy (~1988) History of oophorectomy (~1969) S/P left rotator cuff repair (~2019) S/P right rotator cuff repair (~2000) S/P wrist surgery Tenosynovitis (~2004) Family & Social History Family History (Updated 01/14/22 @ 09:13 by Gayle Mosquera) Father History of heart disease Mother Diabetes mellitus Hypertension Brother Cancer Sister Hypochondria Social History: household members spouse Tobacco & Substance use: Smoking Status Never smoker alcohol intake current alcohol intake frequency holiday/special occasion Substance Use Type does not use Meds Home Medications and Allergies Home Medications Medication Instructions Recorded Confirmed Type atorvastatin 20 mg tablet 20 mg PO DAILY 12/05/20 04/15/22 History nitroglycerin 0.4 mg sublingual 0.4 mg sublingual PRN PRN Chest 12/05/20 04/15/22 History tablet Pain acyclovir 200 mg capsule 200 mg PO TID PRN Rash 01/02/22 04/15/22 History albuterol sulfate 90 mcg/actuation 1 puff inhalation BID PRN Wheezing 01/02/22 04/15/22 History aerosol inhaler estradiol 1 mg tablet 1 mg PO DAILY 01/02/22 04/15/22 History fluticasone propionate 50 2 spray intranasal DAILY 01/02/22 04/15/22 History mcg/actuation nasal spray,suspension (Flonase Allergy Relief) montelukast 10 mg tablet 10 mg PO DAILY 01/02/22 04/15/22 History pantoprazole 40 mg tablet,delayed 40 mg PO DAILY 01/02/22 04/15/22 History release clopidogrel 75 mg tablet 75 mg PO DAILY #90 tabs 02/07/22 04/15/22 Rx hydrochlorothiazide 25 mg tablet 25 mg PO DAILY #90 tabs 02/07/22 04/15/22 Rx amlodipine 5 mg tablet 5 mg PO DAILY #90 tabs 02/14/22 04/15/22 Rx Allergies Allergy/AdvReac Type Severity Reaction Status Date / Time bee pollen Allergy Verified 04/15/22 10:56 codeine Allergy Verified 04/15/22 10:56 iodine Allergy Verified 04/15/22 10:56 latex Allergy Verified 04/15/22 10:56 morphine Allergy Verified 04/15/22 10:56 Penicillins Allergy Verified 04/15/22 10:56 Sulfa (Sulfonamide Allergy Verified 04/15/22 10:56 Antibiotics) venlafaxine AdvReac Intermediate Verified 04/15/22 10:56 Exam Vital Signs (past 8 hours): - 04/15/22 11:48 Temperature 97.4 F L Pulse Rate 82 Respiratory Rate 16 Blood Pressure 159/90 H Pulse Oximetry 97 Oxygen Delivery Method Room Air Oxygen Delivery Method Room Air Const General: No acute distress Resp Effort & Inspection: normal respiratory effort Neuro General: patient alert Assessment & Plan Assessment and plan (1) History of colon polyps: Status: Acute (2) GERD (gastroesophageal reflux disease): Qualifiers: Esophagitis presence: without esophagitis Qualified Code(s): K21.9 - Gastro-esophageal reflux disease without esophagitis Status: Acute Plan Faith is here for her EGD and colonoscopy. We will proceed with MAC for sedation. Time Spent With Patient Critical Care time: I spent a total of [] minutes of critical care time on this patient's care today; this time is exclusive of procedural time.
[2022-04-15 13:20] VITALS: BP 154/86; PULSE 73; RESP 24; TEMP 36.9; O2SAT 95
[2022-04-15 13:25] VITALS: BP 160/83; PULSE 69; RESP 15; O2SAT 95
[2022-04-15 13:30] VITALS: BP 176/85; PULSE 66; RESP 16; O2SAT 96
--- NOTE | 2022-04-15 13:30 | PM.OP.EC ---
Operative Date/Time/Diagnoses Date of procedure: 04/15/22 Time of procedure: 13:30 Pre-op diagnosis: Dysphagia and history of colon polyps Post-op diagnosis: same Procedure & Clinicians Study performed: EGD and colonoscopy Same procedure as scheduled: Yes Surgeon: Devin Vela Procedure Notes Procedure in detail: Surgeon: Devin Vela MD Anesthesiologist: Dr. Dickens Procedure in detail: A timeout was performed. A bite blocked was placed and monitors were attached to the patient. The patient was positioned in the supine position. Sedation was administered by Dr. Dickens. Once the patient was sedated the endoscope was inserted through the bite block and passed through the esophagus and stomach and into the duodenum. The duodenum and bulb appeared normal. The scope was withdrawn into the stomach and the antrum was inspected. There was a rather large polyp in the proximal antrum which was biopsied with forceps. Random biopsies were taken from the antrum. The endoscope was retroflexed and the hiatus was visualized. There was a fungating mass at the GE junction just distal to the Z-line. Multiple biopsies were taken with cold forceps. The endoscope was straightned and withdrawn into the esophagus. No abnormalities were noted in the esophagus. Findings: Polyp in the proximal antrum and fungating mass at the GE junction Next we repositioned the patient for a colonoscopy. A digital rectal exam was performed and was normal. The colonoscope was inserted and advanced to the cecum. The appendiceal orifice was identified and photographed. The scope was slowly withdrawn over greater than 6 minutes. There were scattered diverticula throughout the colon. One small polyp was found in the sigmoid colon removed with cold forceps. The scope was retroflexed in the rectum and no significant abnormalities were noted other than some mild hemorrhoids. Findings: Pandiverticulosis, small 5 mm polyp in sigmoid colon EBL: 5 mL Scope withdrawal time: 8 Post-procedure Recommendations: Will call with biopsy results Disposition: PACU
[2022-04-15 13:34] VITALS: BP 168/81; PULSE 65; RESP 16; O2SAT 98
[2022-04-15 13:40] VITALS: BP 169/91; PULSE 63; RESP 11; O2SAT 98
== END 2022-04-15 14:15 | disposition home or self-care (01) ==
PROVIDERS: PCP Internal Medicine; Referring Provider Surgery; Visit Provider Surgery
PROC: 0DJ08ZZ Inspection of Upper Intestinal Tract, Via Natural or Artificial Opening Endoscopic (ICD-10-PCS; CPT 43235; principal; 2022-04-15 12:15)
PROC: 0DJD8ZZ Inspection of Lower Intestinal Tract, Via Natural or Artificial Opening Endoscopic (ICD-10-PCS; CPT 45378; 2022-04-15 12:15)
DX: Z12.11 Encounter for screening for malignant neoplasm of colon (principal); Z86.010 Personal history of colon polyps; R13.19 Other dysphagia; K57.30 Diverticulosis of large intestine without perforation or abscess without bleeding; G47.33 Obstructive sleep apnea (adult) (pediatric); E66.9 Obesity, unspecified; I10 Essential (primary) hypertension; I25.10 Atherosclerotic heart disease of native coronary artery without angina pectoris; I25.2 Old myocardial infarction; K31.7 Polyp of stomach and duodenum; D12.5 Benign neoplasm of sigmoid colon
CPT/HCPCS: 45380; 43239; 00813; J2704

== ENCOUNTER → 2022-06-20 12:02 | Outpatient (CLI) | payer MEDICARE, SELFPAY ==
--- NOTE | 2022-06-20 | DI.MRI.S_ITS ---
PROCEDURE: MR KNEE LT WO CON INDICATIONS: TEAR OF MEDIAL MENISCUS TECHNIQUE: Noncontrast sagittal PD fast spin echo and T2 fast spin echo with fat saturation, sagittal 3-D FLASH with fat saturation; coronal T1 spin echo and PD fast spin echo with fat saturation, and axial PD fast spin echo with fat saturation through the knee. COMPARISON: None. FINDINGS: Image quality: Excellent. Menisci: Peripheral displacement of medial meniscus bowing medial collateral ligament is seen. Oblique tear involving posterior horn of medial meniscus extending to inferior articulating surface is noted. Lateral meniscus is intact. The meniscal root ligaments appear intact. Cruciate ligaments: The anterior and posterior cruciate ligaments appear intact. Medial structures: The medial collateral ligament appears mildly thickened with surrounding soft tissue edema. The posterior oblique ligament, semimembranosus tendon insertions, oblique popliteal ligament, and meniscocapsular junction appear intact. Visualized portions of the pes anserinus tendons appear normal. No abnormal bursal fluid. Lateral structures: The lateral collateral ligament, long and short heads of the biceps femoris tendon appear intact. The popliteus tendon appears normal; the popliteofibular ligament appears intact. Iliotibial band appears normal. Anterior structures: The quadriceps and patellar tendons appear intact. Patellar alignment is normal. No femoral trochlear dysplasia or ventral trochlear prominence. No edema in the infrapatellar fat pad. Bones and cartilage: No bone marrow contusions or fractures. Mild tricompartmental osteoarthritis and low-grade chondromalacia is seen most notably in medial femoral tibial compartment and lateral facet of patella cartilage. Joint space: There is small knee joint fluid. There is a tiny Hall's cyst. Normal appearing synovial plicae are incidentally noted. IMPRESSION: 1. Subtle oblique tear involving posterior horn of medial meniscus extending to inferior articulating surface. No focal lateral meniscal tear. 2. Cruciate ligaments are intact. Low-grade MCL sprain. 3. Mild tricompartmental osteoarthritis and chondromalacia most notably in medial femoral tibial compartment and lateral facet of patella cartilage. No fracture or dislocation. Small joint effusion and a tiny bakers cyst. No gross loose bodies. Dictated by: Trey Alonzo M.D. on 06/20/2022 at 14:10 Approved by: Trey Alonzo M.D. on 06/20/2022 at 14:12
== END ==
PROVIDERS: PCP Internal Medicine; Referring Provider Orthopaedic Surgery Foot and Ankle Surgery; Visit Provider Orthopaedic Surgery Foot and Ankle Surgery
DX: S83.242A Other tear of medial meniscus, current injury, left knee, initial encounter (principal); S83.412A Sprain of medial collateral ligament of left knee, initial encounter; M17.12 Unilateral primary osteoarthritis, left knee; M22.42 Chondromalacia patellae, left knee; M25.462 Effusion, left knee
CPT/HCPCS: 73721

== ENCOUNTER → 2022-10-30 10:22 | Outpatient (CLI) | payer MEDICARE, SELFPAY ==
--- NOTE | 2022-10-30 | DI.MG.S_ITS ---
BILATERAL DIGITAL SCREENING MAMMOGRAM 3D/2D WITH CAD: 10/30/2022 CLINICAL: Routine screening. Comparison is made to exams dated: 09/24/2021 mammogram - [facility], 12/26/2011 mammogram, and 01/11/2007 mammogram - [facility]. Both breasts are almost entirely fatty (category a/<25% glandular tissue). Current study was also evaluated with a Computer Aided Detection (CAD) system. There are benign calcifications in the left breast. No significant masses, calcifications, or other findings are seen in either breast. There has been no significant interval change. IMPRESSION: BENIGN There is no mammographic evidence of malignancy. A 1 year screening mammogram is recommended. Based on the Tyrer Cuzick model (a risk assessment model) the patient's lifetime risk is 3.0% and her 10 year risk is 1.7%. According to the ACR, ACS, and NCCN guidelines, an annual breast MRI exam along with mammogram is recommended if the patient's lifetime risk is 20% or greater. This exam was interpreted at Station ID: [id number]. NOTE: For mammograms, a report in lay terms will be sent to the patient. Approximately 15% of breast malignancies will not be visualized mammographically. In the management of a palpable breast mass, a negative mammogram must not discourage biopsy of a clinically suspicious lesion. Electronically Signed By: Antonette de leon/francisca:10/30/2022 13:15:26 letter sent: Normal Exam ACR BI-RADS Category 2: Benign Finding(s) 3342F
== END ==
PROVIDERS: PCP Internal Medicine; Referring Provider Internal Medicine; Visit Provider Internal Medicine
DX: Z12.31 Encounter for screening mammogram for malignant neoplasm of breast (principal)
CPT/HCPCS: 77063; 77067

== ENCOUNTER → 2023-01-23 07:17 | Outpatient (CLI) | payer MEDICARE, SELFPAY ==
[2023-01-23 08:23] LABS: Hematocrit 38.1 % (36-46); Hemoglobin 12.8 g/dL (12.0-16.0); Mean Corpuscular HGB Conc 33.6 % (30-36); Mean Corpuscular Hemoglobin 28.8 PG (26-34); Mean Corpuscular Volume 85.9 fL (80-100); Platelet Count 202 X10^3/uL (150-400); Red Blood Cell Count 4.43 X10^6/uL (4.0-5.2); Red Cell Distribution Width 15.1 % (11.6-14.8); White Blood Cell Count 5.9 X10^3/uL (4.5-11.0)
[2023-01-23 08:26] LABS: Alanine Aminotransferase 23 IU/L (<35); Albumin Globulin Ratio 1.4 (1.0-2.8); Alkaline Phosphatase 58 U/L (38-126); Aspartate Aminotransferase 22 IU/L (14-36); BUN Creatinine Ratio 40.3 (6-22); Bilirubin Total 0.3 mg/dL (0.2-1.3); Blood Urea Nitrogen 27 mg/dL (7-17); Calcium 9.1 mg/dL (8.4-10.2); Carbon Dioxide 30 mmol/L (22-32); Chloride 101 mmol/L (98-107); Cholesterol 188 mg/dL (140-199); Estimated Glomerular Filt Rate > 60 mL/min (>60); Globulin 2.8 g/dL (1.7-4.1); Glucose 107 mg/dL (80-110); HDL Cholesterol 102 mg/dL (40-60); HEMOLYSIS < 15 (0-50); LDL Cholesterol Calculated 72 mg/dL (<100); Potassium 4.2 mmol/L (3.4-5.1); Sodium 136 mmol/L (137-145); Total Protein 6.8 g/dL (6.3-8.2); Triglycerides 71 mg/dL (35-150)
[2023-01-23 08:53] LABS: TSH w/ Reflex to FT4 4.91 uIU/mL (0.47-4.68)
[2023-01-23 09:27] LABS: Free T4, Direct Thyroxine 1.01 ng/dL (0.78-2.19)
[2023-01-24 06:41] LABS: Labcorp Hemoglobin (Hb) A1c 5.7 % (4.8-5.6)
== END ==
PROVIDERS: PCP Internal Medicine; Referring Provider Internal Medicine; Visit Provider Internal Medicine
DX: E78.2 Mixed hyperlipidemia (principal); I10 Essential (primary) hypertension; I47.1 Supraventricular tachycardia; K75.81 Nonalcoholic steatohepatitis (NASH); R73.01 Impaired fasting glucose
CPT/HCPCS: 36415; 80053; 80061; 83036; 84439; 84443; 85027

== ENCOUNTER → 2023-05-20 10:31 | Outpatient (CLI) | payer MEDICARE, SELFPAY ==
--- NOTE | 2023-05-20 10:32 | DI.RAD.S_ITS ---
PROCEDURE: XR CHEST 2V INDICATIONS: cough TECHNIQUE: 2 views of the chest were acquired. COMPARISON: [facility], , XR CHEST 1V, 12/05/2020, 14:32. FINDINGS: Surgical changes and devices: None. Lungs and pleura: Lungs are clear. No pleural effusions or pneumothorax. Mediastinum: Mediastinal contours are normal. Heart size is normal. Bones and chest wall: No suspicious bony abnormalities. Soft tissues appear unremarkable. IMPRESSION: Normal two view chest x-ray Approved by: Osmany Griffin M.D. on 05/20/2023 at 18:13
== END ==
PROVIDERS: PCP Internal Medicine; Referring Provider Internal Medicine; Visit Provider Internal Medicine
DX: J20.9 Acute bronchitis, unspecified (principal); J45.909 Unspecified asthma, uncomplicated
CPT/HCPCS: 71046

== ENCOUNTER 2023-11-10 11:59 | Observation (INO) | payer MEDICARE, SELFPAY ==
[2023-11-10] VITALS (25 sets, daily range): BP systolic 134–175; BP diastolic 67–84; PULSE 58–69; RESP 9–22; TEMP 36–36.2; O2SAT 94–98; BMI 32.8
--- NOTE | 2023-11-10 12:15 | DI.RAD.S_ITS ---
PROCEDURE: XR CHEST 1V INDICATIONS: chest pain TECHNIQUE: One view of the chest was acquired. COMPARISON: [facility], CR, XR CHEST 2V, 05/20/2023, 10:42. FINDINGS: Surgical changes and devices: None. Lungs and pleura: Lungs are clear. No pleural effusions or pneumothorax. Mediastinum: Mediastinal contours appear normal. Heart size is normal. Bones and chest wall: No suspicious bony lesions. Overlying soft tissues appear unremarkable. IMPRESSION: No acute pulmonary process. Dictated by: Aletha George M.D. on 11/10/2023 at 12:56 Approved by: Aletha George M.D. on 11/10/2023 at 12:58
--- NOTE | 2023-11-10 12:57 | PC.NURSE ---
Pt reports chest pain that has been on and off. Pt reports she took 2 nitro last night with no relief. 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 no swelling noted on extremities. Pt denies any swelling. Pt reports pain is worse when lying back and during exertion.
[2023-11-10 13:11] LABS: Add Manual Diff / Slide Review NO; Basophils Absolute Auto 100 /uL (0-100); Basophils Percent Auto 1.3 % (0-2); Eosinophils Absolute Auto 400 /uL (0-450); Eosinophils Percent Auto 8.3 % (2-4); Hematocrit 39.4 % (36-46); Lymphocytes Absolute Auto 2100 /uL (1100-4500); Lymphocytes Percent Auto 38.3 % (25-40); Mean Corpuscular HGB Conc 33.1 % (30-36); Mean Corpuscular Hemoglobin 28.1 PG (26-34); Mean Corpuscular Volume 84.9 fL (80-100); Monocytes Absolute Auto 700 /uL (0-900); Monocytes Percent Auto 13.1 % (3-14); Neutrophils Absolute Auto 2100 /uL (1500-7000); Platelet Count 175 X10^3/uL (150-400); Red Blood Cell Count 4.65 X10^6/uL (4.0-5.2); Red Cell Distribution Width 15.7 % (11.6-14.8); White Blood Cell Count 5.4 X10^3/uL (4.5-11.0)
[2023-11-10 13:17] LABS: INR 0.9 (0.9-1.3); Prothrombin Time 10.6 SECONDS (9.4-12.5)
[2023-11-10 13:19] LABS: PTT Partial Thromboplastin Tim 35 SECONDS (25.1-36.5)
[2023-11-10 13:33] LABS: Alanine Aminotransferase 24 IU/L (<35); Albumin 4.2 g/dL (3.5-5.0); Albumin Globulin Ratio 1.4 (1.0-2.8); Alkaline Phosphatase 70 U/L (38-126); Aspartate Aminotransferase 48 IU/L (14-36); BUN Creatinine Ratio 31.3 (6-22); Bilirubin Total 0.8 mg/dL (0.2-1.3); Blood Urea Nitrogen 20 mg/dL (7-17); Calcium 9.4 mg/dL (8.4-10.2); Carbon Dioxide 25 mmol/L (22-32); Chloride 103 mmol/L (98-107); Estimated Glomerular Filt Rate > 60 mL/min (>60); Globulin 2.9 g/dL (1.7-4.1); Glucose 97 mg/dL (80-110); HEMOLYSIS 90 (0-50); Lipase 73 U/L (23-300); Magnesium 2.1 mg/dL (1.6-2.3); Potassium 3.5 mmol/L (3.4-5.1); Sodium 136 mmol/L (137-145); Total Protein 7.1 g/dL (6.3-8.2)
[2023-11-10 14:02] LABS: Creatine Kinase 70 U/L (30-135)
--- NOTE | 2023-11-10 14:02 | ED.CHESTPAIN ---
HPI - Chest Pain General Chief Complaint: Chest Pain Stated Complaint: CHEST PAIN Time Seen by Provider: 11/10/23 13:33 Source: patient Mode of arrival: Ambulatory Limitations: no limitations History of Present Illness HPI narrative: Patient here with . Complains off and on left-sided chest pain that radiates to the jaw the back the arm at variable times, duration at the most 5 minutes. No sweating no nausea no dizziness no diaphoresis. Patient has history of non-STEMI in 2018. No stents were placed, this was in [place]. Patient sees [facility] cardiology, dr henry,, office visit July 2023 with a good checkup. She did have heart catheterization by him in the past 4 years. Never had any stents. In last 3 days chest pain has started. Nonreproducible. Related Data Home Medications Medication Instructions Recorded Confirmed albuterol sulfate 90 mcg/actuation 1 puff inhalation BID PRN Wheezing 01/02/22 11/10/23 aerosol inhaler metoprolol tartrate 25 mg tablet 25 mg PO DAILY PRN palpitations 07/04/23 11/10/23 Previous Rx's Medication Instructions Recorded montelukast 10 mg tablet 10 mg PO DAILY #90 tabs 07/10/22 pantoprazole 40 mg tablet,delayed 40 mg PO BID #180 tabs 07/10/22 release acyclovir 200 mg capsule 200 mg PO TID PRN Rash #30 caps 06/22/23 benzonatate 100 mg capsule 100 mg PO BID PRN cough #28 caps 07/04/23 amlodipine 5 mg tablet 5 mg PO DAILY #90 tabs 07/22/23 atorvastatin 20 mg tablet 20 mg PO DAILY #90 tabs 07/22/23 estradiol 1 mg tablet 1 mg PO DAILY #90 tabs 07/22/23 hydrochlorothiazide 25 mg tablet 25 mg PO DAILY #90 tabs 07/22/23 nitroglycerin 0.4 mg sublingual 0.4 mg sublingual PRN PRN Chest 07/22/23 tablet Pain #30 tabs Allergies Allergy/AdvReac Type Severity Reaction Status Date / Time Penicillins Allergy Unknown Verified 11/11/23 16:01 bee pollen Allergy Verified 07/22/23 12:54 codeine Allergy Verified 07/22/23 12:54 iodine Allergy Verified 07/22/23 12:54 latex Allergy Verified 07/22/23 12:54 morphine Allergy Verified 07/22/23 12:54 Sulfa (Sulfonamide Allergy Verified 07/22/23 12:54 Antibiotics) venlafaxine AdvReac Intermediate Verified 07/22/23 12:54 Review of Systems Review of Systems Narrative: GENERAL: negative chills, fatigue, malaise, fever, sweats. HEENT: negative sinus pain, ear pain, sore throat RESPIRATORY: negative dyspnea, cough CARDIOVASCULAR: Positive chest pain, palpitations GASTROINTESTINAL: negative nausea, vomiting, abdominal pain : negative dysuria, frequency, hematuria MUSCULOSKELETAL: negative muscle or bony pain SKIN: negative rash, skin lesions NEUROLOGIC: negative weakness, numbness ROS Unobtainable: All systems reviewed & are unremarkable except as noted in HPI and below Patient History Medical History Gait instability BPPV (benign paroxysmal positional vertigo) Primary osteoarthritis involving multiple joints Gastric mass Fractures Foot pain (~1999) Carpal tunnel syndrome (~2001) Mumps Measles Vertigo (~2017) Tinnitus [place] (nonalcoholic steatohepatitis) Bilateral tinnitus Left knee pain Generalized anxiety disorder SVT (supraventricular tachycardia) History of colon polyps Obesity (BMI 35.0-39.9 without comorbidity) Obstructive sleep apnea (adult) (pediatric) Impaired fasting glucose Mixed hyperlipidemia Essential hypertension Non-ST elevated myocardial infarction Coronary artery disease GERD (gastroesophageal reflux disease) Asthma (~1979) Rotator cuff injury Tenosynovitis Heart attack Surgical History Anesthesia S/P left rotator cuff repair (~2019) History of cataract removal with insertion of prosthetic lens (~2011) Tenosynovitis (~2004) S/P wrist surgery S/P right rotator cuff repair (~2000) History of oophorectomy (~1969) History of hysterectomy (~1988) History of appendectomy Family History Father History of heart disease Mother Diabetes mellitus Hypertension Brother Cancer Sister Hypochondria Social History marital status: household members: spouse travel history: recent Smoking Status: Never smoker alcohol intake: current substance use type: does not use Smoking Status: Never smoker alcohol intake frequency: holidays/special occasions only Substance Use Type: does not use Exam Narrative Exam Narrative: GENERAL: in no distress, not toxic not dyspneic HEAD: Normocephalic. EYES: Pupils equal round ENT: Mucous membranes moist. NECK: Trachea midline. CARDIOVASCULAR: Regular rate and rhythm RESPIRATORY: Clear to auscultation. Breath sounds equal bilaterally. No wheezes, rales, or rhonchi. GASTROINTESTINAL: Abdomen soft, non-tender EXTREMITIES: No gross deformities. BACK: No flank tenderness. NEURO: AOx4. SKIN: Warm and dry PSYCH: Not anxious, is cooperative Initial Vital Signs Initial Vital Signs: Vital Signs Temperature 97.1 F L 11/10/23 12:09 Pulse Rate 66 11/10/23 12:09 Respiratory Rate 18 11/10/23 12:09 Blood Pressure 175/81 H 11/10/23 12:09 Pulse Oximetry 98 11/10/23 12:09 Oxygen Delivery Method Room Air 11/10/23 12:09 Course Orders Ordered: Discontinued Medications Acetaminophen (Acetaminophen 325 Mg Tablet) 975 mg PO NOW ONE Stop: 11/10/23 18:11 Last Admin: 11/10/23 18:26 Dose: 975 mg Documented By: KIKI Acetaminophen (Acetaminophen 325 Mg Tablet) 650 mg PO Q6H PRN PRN Reason: Fever/Mild Pain (1-3) Last Admin: 11/11/23 06:46 Dose: 650 mg Documented By: SENA Hydrocodone Bitart/Acetaminophen (Hydrocodone/Acet 5/325 Tablet) 1 tab PO Q4HR PRN PRN Reason: Pain, Moderate (4-6) Last Admin: 11/11/23 02:26 Dose: 1 tab Documented By: Admin: 11/10/23 22:20 Dose: 1 tab Documented By: SENA Albuterol (Albuterol 2.5 Mg/3 Ml Neb (Adult)) 2.5 mg INH SPT4LOIX PRN PRN Reason: Shortness Of Breath Amlodipine Besylate (Amlodipine 5 Mg Tablet) 5 mg PO DAILY [facility] Last Admin: 11/11/23 08:23 Dose: 5 mg Documented By: SAHARA Aspirin (Aspirin 81 Mg Chew Tab) 324 mg PO NOW ONE Stop: 11/10/23 14:03 Last Admin: 11/10/23 14:14 Dose: 324 mg Documented By: KIKI Aspirin (Aspirin Ec 81 Mg Tablet) 81 mg PO DAILY [facility] Last Admin: 11/11/23 08:23 Dose: 81 mg Documented By: SAHARA Atorvastatin Calcium (Atorvastatin 20 Mg Tablet) 20 mg PO DAILY [facility] Last Admin: 11/11/23 08:23 Dose: 20 mg Documented By: SAHARA Enoxaparin Sodium (Enoxaparin 40 Mg/0.4 Ml Syringe) 40 mg SUBCUT DAILY [facility] Last Admin: 11/11/23 08:23 Dose: 40 mg Documented By: SAHARA Estradiol (Estradiol 1 Mg Tablet) 1 mg PO DAILY [facility] Last Admin: 11/11/23 08:55 Dose: 1 mg Documented By: SAHARA Hydrochlorothiazide (Hydrochlorothiazide 25 Mg Tablet) 25 mg PO DAILY [facility] Last Admin: 11/11/23 08:23 Dose: 25 mg Documented By: SAHARA Montelukast Sodium (Montelukast 10 Mg Tablet) 10 mg PO DAILY [facility] Last Admin: 11/11/23 08:55 Dose: 10 mg Documented By: SAHARA Naloxone HCl (Naloxone 0.4 Mg/Ml Vial) 0.2 mg IV Q2MIN PRN PRN Reason: Opiate Reversal Nitroglycerin (Nitroglycerin Oint 1 Inch/Gm Oint...G.) 1 inch TOP NOW ONE Stop: 11/10/23 14:03 Last Admin: 11/10/23 14:14 Dose: 1 inch Documented By: KIKI Nitroglycerin (Nitroglycerin 0.4 Mg Sl Tab) 0.4 mg SL Q5MIN PRN PRN Reason: CHEST PAIN Ondansetron HCl (Ondansetron 4 Mg/2 Ml Inj) 4 mg IV Q4HR PRN PRN Reason: nausea Last Admin: 11/11/23 11:20 Dose: 4 mg Documented By: Admin: 11/11/23 06:28 Dose: 4 mg Documented By: SENA Pantoprazole Sodium (Pantoprazole Dr 40 Mg Tablet) 40 mg PO BID [facility] Last Admin: 11/11/23 08:23 Dose: 40 mg Documented By: SAHARA Potassium Chloride (Potassium Chloride 20 Meq Tab) 40 meq PO Q6H [facility] Stop: 11/11/23 15:01 Last Admin: 11/11/23 16:09 Dose: 40 meq Documented By: Admin: 11/11/23 11:20 Dose: 40 meq Documented By: SAHARA Vital Signs Vital signs: Vital Signs - 8 hr 11/10/23 12:09 11/10/23 12:32 11/10/23 13:00 Temperature 97.1 F L Pulse Rate 66 67 Respiratory Rate 18 Blood Pressure 175/81 H 148/80 H Pulse Oximetry 98 97 Oxygen Delivery Method Room Air 11/10/23 13:00 11/10/23 13:30 11/10/23 13:30 Temperature Pulse Rate 62 58 L Respiratory Rate 14 10 L Blood Pressure 158/75 H Pulse Oximetry 97 95 Oxygen Delivery Method 11/10/23 14:00 11/10/23 14:00 11/10/23 14:14 Temperature Pulse Rate 67 62 Respiratory Rate 12 Blood Pressure 167/84 H 150/72 H Pulse Oximetry 98 Oxygen Delivery Method 11/10/23 14:17 11/10/23 14:17 11/10/23 14:22 Temperature Pulse Rate 60 61 Respiratory Rate 14 15 Blood Pressure 150/72 H Pulse Oximetry 98 96 Oxygen Delivery Method 11/10/23 14:22 11/10/23 14:25 11/10/23 14:25 Temperature Pulse Rate 60 Respiratory Rate 22 Blood Pressure 168/77 H 172/74 H Pulse Oximetry 97 Oxygen Delivery Method 11/10/23 14:30 11/10/23 14:30 11/10/23 14:35 Temperature Pulse Rate 58 L 58 L Respiratory Rate 9 L 15 Blood Pressure 136/67 Pulse Oximetry 94 97 Oxygen Delivery Method 11/10/23 14:35 11/10/23 14:40 11/10/23 14:40 Temperature Pulse Rate 61 Respiratory Rate 13 Blood Pressure 147/76 H 151/73 H Pulse Oximetry 97 Oxygen Delivery Method 11/10/23 14:45 11/10/23 14:45 11/10/23 14:50 Temperature Pulse Rate 61 Respiratory Rate 12 Blood Pressure 138/79 142/75 H Pulse Oximetry 97 Oxygen Delivery Method 11/10/23 14:50 11/10/23 14:55 11/10/23 14:55 Temperature Pulse Rate 58 L 61 Respiratory Rate 16 14 Blood Pressure 159/72 H Pulse Oximetry 96 95 Oxygen Delivery Method 11/10/23 15:00 11/10/23 15:00 11/10/23 15:05 Temperature Pulse Rate 60 59 L Respiratory Rate 14 11 L Blood Pressure 151/77 H Pulse Oximetry 96 96 Oxygen Delivery Method 11/10/23 15:05 11/10/23 15:30 11/10/23 16:00 Temperature Pulse Rate 65 64 Respiratory Rate 20 Blood Pressure 143/79 H Pulse Oximetry 95 96 Oxygen Delivery Method 11/10/23 16:30 11/10/23 17:00 11/10/23 17:30 Temperature Pulse Rate 67 69 65 Respiratory Rate 14 14 Blood Pressure Pulse Oximetry 95 95 95 Oxygen Delivery Method MDM - Chest Pain Lab Data 11/11/23 05:12 11/11/23 05:12 Labs: Lab Results 11/10/23 11/10/23 11/10/23 Range/Units 12:54 13:47 15:56 WBC 5.4 (4.5-11.0) X10^3/uL RBC 4.65 (4.0-5.2) X10^6/uL Hgb 13.0 (12.0-16.0) g/dL Hct 39.4 (36-46) % MCV 84.9 (80-100) fL MCH 28.1 (26-34) PG MCHC 33.1 (30-36) % RDW 15.7 H (11.6-14.8) % Plt Count 175 (150-400) X10^3/uL Neut % (Auto) 39.0 L (50-75) % Lymph % (Auto) 38.3 (25-40) % Clark % (Auto) 13.1 (3-14) % Eos % (Auto) 8.3 H (2-4) % Baso % (Auto) 1.3 (0-2) % Neut # (Auto) 2100 (1136-0606) /uL Lymph # (Auto) 2100 (7274-6186) /uL Clark # (Auto) 700 (0-900) /uL Eos # (Auto) 400 (0-450) /uL Baso # (Auto) 100 (0-100) /uL PT 10.6 (9.4-12.5) SECONDS INR 0.9 (0.9-1.3) APTT 35 (25.1-36.5) SECONDS Sodium 136 L (137-145) mmol/L Potassium 3.5 (3.4-5.1) mmol/L Chloride 103 (98-107) mmol/L Carbon Dioxide 25 (22-32) mmol/L BUN 20 H (7-17) mg/dL Creatinine 0.64 (0.52-1.04) mg/dL Estimated GFR > 60 (>60) mL/min BUN/Creatinine Ratio 31.3 H (6-22) Glucose 97 (80-110) mg/dL Calcium 9.4 (8.4-10.2) mg/dL Magnesium 2.1 (1.6-2.3) mg/dL Total Bilirubin 0.8 (0.2-1.3) mg/dL AST 48 H (14-36) IU/L ALT 24 (<35) IU/L Alkaline Phosphatase 70 (38-126) U/L Total Creatine Kinase Cancelled 70 Troponin I Cancelled < 0.012 < 0.012 NT-Pro-B Natriuret Pep 53 (<125) pg/mL Total Protein 7.1 (6.3-8.2) g/dL Albumin 4.2 (3.5-5.0) g/dL Globulin 2.9 (1.7-4.1) g/dL Albumin/Globulin Ratio 1.4 (1.0-2.8) Lipase 73 (23-300) U/L Imaging Data Chest x-ray: Radiologist's Impression: [address] [address] XRay Report Signed Patient: Faith Davison MR#: [id number] : 1955 Acct:[id number] Age/Sex: 68 / F Date of Service: 11/10/23 Loc: ED Accession Number: [id number] Procedure: XR chest 1V Ordering Provider: Te Smith MD PROCEDURE: XR CHEST 1V INDICATIONS: chest pain TECHNIQUE: One view of the chest was acquired. COMPARISON: [facility], , XR CHEST 2V, 05/20/2023, 10:42. FINDINGS: Surgical changes and devices: None. Lungs and pleura: Lungs are clear. No pleural effusions or pneumothorax. Mediastinum: Mediastinal contours appear normal. Heart size is normal. Bones and chest wall: No suspicious bony lesions. Overlying soft tissues appear unremarkable. IMPRESSION: No acute pulmonary process. Dictated by: Aletha George M.D. on 11/10/2023 at 12:56 Approved by: Aletha George M.D. on 11/10/2023 at 12:58 [facility] Narrative Medical decision making narrative: Patient here with . Complains off and on left-sided chest pain that radiates to the jaw the back the arm at variable times, duration at the most 5 minutes. No sweating no nausea no dizziness no diaphoresis. Patient has history of non-STEMI in 2018. No stents were placed, this was in [place]. Patient sees [facility] cardiology, dr henry,, office visit July 2023 with a good checkup. She did have heart catheterization by him in the past 4 years. Never had any stents. In last 3 days chest pain has started. Nonreproducible. After history and exam CBC CMP troponin EKG chest x-ray nitro paste aspirin MDM Medical records reviewed: ER visit here 2020, office visit July 2023 with Cardiology Differential considered: Includes but not limited to STEMI non-STEMI unstable angina Lab Test results independently reviewed as above. Pertinent findings: Hemoglobin 13 hematocrit 39 BUN 20 creatinine 0.64 troponin less than 0.012 x 2 Independently reviewed EKG normal sinus rhythm rate [address] elevation or depression Repeat EKG 3:49 p.m.. Normal sinus rhythm normal EKG rate [address] elevation or depression Imaging studies independently reviewed: Chest x-ray no acute finding Consultations: Spoke with Cardiology, dr jasso, recommends admission stress test echocardiogram Treatments: Aspirin nitro paste Re-evaluations: Updated patient and family agree for admit. Currently chest pain-free Discussion: Appropriate for admission for stress test echocardiogram. I did review with cardiology services. Patient and family agree for admit. Spoke with hospitalist agrees for admit Diagnosis: Chest pain Discharge Plan Departure Patient Disposition: Admitted as Observation Clinical Impression: Chest pain Qualifiers: Chest pain type: unspecified Qualified Code(s): R07.9 - Chest pain, unspecified Admit Date/Time: 11/10/23 17:30 Admit Provider: Lukasz Aceves
[2023-11-10] MEDS: NITROGLYCERIN OINT 1 INCH/GM OINT...G. TOP (14:14)
[2023-11-10] MEDS: ASPIRIN 81 MG CHEW TAB 324 MG PO (14:14)
[2023-11-10 14:15] LABS: NT-proBNP (BNP-Adult 18+) 53 pg/mL (<125); Troponin I < 0.012 ng/mL (0.01-0.034)
[2023-11-10 16:26] LABS: Troponin I < 0.012 ng/mL (0.01-0.034)
[2023-11-10] MEDS: ACETAMINOPHEN 325 MG TABLET 975 MG PO (18:26)
[2023-11-10] MEDS: HYDROCODONE/ACET 5/325 TABLET 1 TAB PO (22:20)
--- NOTE | 2023-11-10 22:40 | DI.ECHO.S_ITS ---
[place]---------+ [facility] +---------+ : : [address] : : : : [id number] : : : : Phone: [phone] Echocardiogram Report + :Name: CAMELIA HENDERSON Study Date: 11/11/2023 Height: 63 in : :[facility] ReadingLocation: Weight: 185 lb : : Gender: Female BSA: 1.9 m2 : :: 1955 Age: 68 yrs BP: 113/63 mmHg: :Reason For Study: CHEST PAIN : :Ordering Physician: BENNY PAYNE, : :RODRIGUEZ CARBAJAL Performed By: Leelee Sandoval : :Referring: RODRIGUEZ JONES MD : + Interpretation Summary The left ventricle is normal in size and wall thickness. Left ventricular systolic function appears normal without focal wall motion abnormalities. The ejection fraction is estimated to be 60-65%. Diastolic parameters suggest a relaxation abnormality of the left ventricle, consistent with probable normal filling pressures. The right ventricle is normal in size and function. The left atrial size is normal. There is no significant valvular heart disease. The aortic root is normal size. Procedure: A two-dimensional transthoracic echocardiogram with color flow and Doppler was performed. The study quality was technically adequate. There is no prior echocardiogram noted for this patient. The patient was in sinus rhythm with heart rates between 67-76 bpm during the exam. Left Ventricle: The left ventricle is normal in size and wall thickness. Left ventricular systolic function appears normal without focal wall motion abnormalities. The ejection fraction is estimated to be 60-65%. Diastolic parameters suggest a relaxation abnormality of the left ventricle, consistent with probable normal filling pressures. Right Ventricle: The right ventricle is normal in size and function. Atria: The left atrial size is normal. Right atrial size is normal. There is no Doppler evidence for an interatrial shunt. Mitral Valve: The mitral valve is normal in structure and function. There is trace mitral regurgitation. Aortic Valve: The aortic valve is trileaflet. The aortic valve opens well. The aortic valve is mildly calcified. There is no aortic valve stenosis. No aortic regurgitation is present. Tricuspid Valve: The tricuspid valve is normal in structure and function. There is trace tricuspid regurgitation. Pulmonic Valve: The pulmonic valve leaflets are thin and pliable; valve motion is normal. There is trace pulmonic regurgitation. There is no significant valvular heart disease. Great Vessels: The aortic root is normal size. The dimensions of the ascending aorta are normal. The IVC is of normal diameter and collapses greater than 50% with a sniff. This suggests a low right atrial pressure of 3 mm Hg. Pericardium/ Pleura There is no pericardial effusion. There is no pleural effusion. MMode/2D Measurements & Calculations LVIDd: 4.1 cm LVOT diam: 1.9 cm LVIDs: 2.5 cm Ao root diam: 3.1 cm FS: 37.8 % asc Aorta Diam: 3.1 cm IVSd: 0.85 cm Ao Arch Diam (Prox Trans): 3.0 cm LVPWd: 0.82 cm LV gilliam. diameter/BSA (cm/m^2): 2.2 LV sys. diameter/BSA (cm/m^2): 1.4 LA A2 area: 12.8 cm2 RA long axis: 5.2 cm LA A4 area: 17.4 cm2 RA area: 15.5 cm2 LA length (vol): 5.5 cm RA vol: 39.5 ml LA vol: 34.6 ml RA : 21.1 ml/m2 LA vol index: 18.5 ml/m2 IVC diam: 1.2 cm RVD1 (basal): 3.1 cm RVD2 (mid): 2.7 cm TAPSE: 1.8 cm Doppler Measurements & Calculations Ao V2 max: 145.9 cm/sec LVOT Max Abdirahman: 108.7 cm/sec Ao V2 mean: 101.3 cm/sec LV V1 max P.7 mmHg Ao max P.5 mmHg LV V1 VTI: 26.5 cm Ao mean P.6 mmHg MARIA DOLORES(I,D): 2.3 cm2 Ao V2 VTI: 33.2 cm MARIA DOLORES(V,D): 2.1 cm2 sev ratio: 0.80 MARIA DOLORES indexed to BSA (cm^2/m^2): 1.2 MV E max abdirahman: 70.4 cm/sec PA V2 max: 108.3 cm/sec MV A max abdirahman: 88.5 cm/sec PA V2 mean: 76.7 cm/sec MV E/A: 0.80 PA mean P.6 mmHg Med Peak E' Abdirahman: 7.2 cm/sec E/E' med: 9.8 Lat Peak E' Abdirahman: 7.4 cm/sec E/E' lat: 9.5 E/e' average: 9.7 MV dec time: 0.21 sec SV(LVOT): 75.4 ml Reading Physician:05:40 PM
--- NOTE | 2023-11-10 22:41 | P.HP_ITS ---
History of Present Illness History of Present Illness Date Patient Seen: 11/10/23 Time Patient Seen: 21:00 Chief complaint: CHEST PAIN Narrative: 68 y/o with PMH of CAD, followed by , presented to ED with 3-day history of chest pain. left-sided chest pain that radiates to the jaw the back the arm at variable times, duration at the most 5 minutes. No sweating no nausea no dizziness no diaphoresis. Patient has history of non-STEMI in 2018. No stents were placed, this was in [place]. Patient sees [facility] cardiology, dr Schultz,, office visit July 2023, from the ED. On that visit she was taken off Plavix. Currently on statin and BB. Last nuclear stress test in 2019, apparently. Last cardiology testing was Zio patch that did not register arrhythmia, 3 months ago. Placed in observation on telemetry with 2 negative troponins and w/o acute ischemic EKG changes but with clinical angina for further evaluation. [facility], [facility] Medical History Gait instability BPPV (benign paroxysmal positional vertigo) Primary osteoarthritis involving multiple joints Gastric mass Fractures Foot pain (~1999) Carpal tunnel syndrome (~2001) Mumps Measles Vertigo (~2017) Tinnitus [place] (nonalcoholic steatohepatitis) Bilateral tinnitus Left knee pain Generalized anxiety disorder SVT (supraventricular tachycardia) History of colon polyps Obesity (BMI 35.0-39.9 without comorbidity) Obstructive sleep apnea (adult) (pediatric) Impaired fasting glucose Mixed hyperlipidemia Essential hypertension Non-ST elevated myocardial infarction Coronary artery disease GERD (gastroesophageal reflux disease) Asthma (~1979) Rotator cuff injury Tenosynovitis Heart attack Surgical History Anesthesia S/P left rotator cuff repair (~2019) History of cataract removal with insertion of prosthetic lens (~2011) Tenosynovitis (~2004) S/P wrist surgery S/P right rotator cuff repair (~2000) History of oophorectomy (~1969) History of hysterectomy (~1988) History of appendectomy Family History Father History of heart disease Mother Diabetes mellitus Hypertension Brother Cancer Sister Hypochondria Social History marital status: household members: spouse travel history: recent Smoking Status: Never smoker alcohol intake: current substance use type: does not use Meds Home Medications and Allergies Home Medications Medication Instructions Recorded Confirmed Type albuterol sulfate 90 mcg/actuation 1 puff inhalation BID PRN Wheezing 01/02/22 11/10/23 History aerosol inhaler montelukast 10 mg tablet 10 mg PO DAILY #90 tabs 07/10/22 11/10/23 Rx pantoprazole 40 mg tablet,delayed 40 mg PO BID #180 tabs 07/10/22 11/10/23 Rx release acyclovir 200 mg capsule 200 mg PO TID PRN Rash #30 caps 06/22/23 11/10/23 Rx benzonatate 100 mg capsule 100 mg PO BID PRN cough #28 caps 07/04/23 11/10/23 Rx metoprolol tartrate 25 mg tablet 25 mg PO DAILY PRN palpitations 07/04/23 11/10/23 History amlodipine 5 mg tablet 5 mg PO DAILY #90 tabs 07/22/23 11/10/23 Rx atorvastatin 20 mg tablet 20 mg PO DAILY #90 tabs 07/22/23 11/10/23 Rx estradiol 1 mg tablet 1 mg PO DAILY #90 tabs 07/22/23 11/10/23 Rx hydrochlorothiazide 25 mg tablet 25 mg PO DAILY #90 tabs 07/22/23 11/10/23 Rx nitroglycerin 0.4 mg sublingual 0.4 mg sublingual PRN PRN Chest 07/22/23 11/10/23 Rx tablet Pain #30 tabs Allergies Allergy/AdvReac Type Severity Reaction Status Date / Time bee pollen Allergy Verified 07/22/23 12:54 codeine Allergy Verified 07/22/23 12:54 iodine Allergy Verified 07/22/23 12:54 latex Allergy Verified 07/22/23 12:54 morphine Allergy Verified 07/22/23 12:54 Penicillins Allergy Verified 07/22/23 12:54 Sulfa (Sulfonamide Allergy Verified 07/22/23 12:54 Antibiotics) venlafaxine AdvReac Intermediate Verified 07/22/23 12:54 Review of Systems Constitutional Comments: w/o fever, sweats, chills Cardiovascular Comments: as in HPI Respiratory Comments: w/o shortness of breath Gastrointestinal Comments: w/o complaints Neurologic Comments: headache Psychiatric Comments: not anxious Exam Vital Signs (past 8 hours): - 11/10/23 14:45 11/10/23 14:45 11/10/23 14:50 Temperature Pulse Rate 61 Respiratory Rate 12 Blood Pressure 138/79 142/75 H Pulse Oximetry 97 Oxygen Delivery Method 11/10/23 14:50 11/10/23 14:55 11/10/23 14:55 Temperature Pulse Rate 58 L 61 Respiratory Rate 16 14 Blood Pressure 159/72 H Pulse Oximetry 96 95 Oxygen Delivery Method 11/10/23 15:00 11/10/23 15:00 11/10/23 15:05 Temperature Pulse Rate 60 59 L Respiratory Rate 14 11 L Blood Pressure 151/77 H Pulse Oximetry 96 96 Oxygen Delivery Method 11/10/23 15:05 11/10/23 15:30 11/10/23 16:00 Temperature Pulse Rate 65 64 Respiratory Rate 20 Blood Pressure 143/79 H Pulse Oximetry 95 96 Oxygen Delivery Method 11/10/23 16:30 11/10/23 17:00 11/10/23 17:30 Temperature Pulse Rate 67 69 65 Respiratory Rate 14 14 Blood Pressure Pulse Oximetry 95 95 95 Oxygen Delivery Method 11/10/23 17:59 11/10/23 18:00 11/10/23 18:38 Temperature Pulse Rate 69 Respiratory Rate 16 16 Blood Pressure Pulse Oximetry 96 Oxygen Delivery Method Room Air 11/10/23 18:53 Temperature 96.8 F L Pulse Rate 66 Respiratory Rate 16 Blood Pressure 134/81 Pulse Oximetry 95 Oxygen Delivery Method Oxygen Delivery Method Room Air Const Other: Laying in bed in no distress, at bedside Neck Other: w/o JVD Resp Other: CTA Cardio Other: RRR Skin Other: w/o rashes Neuro Other: w/o deficits Extrem Other: w/o swelling Psych Other: appropriate mood, lucid Objective ECG Impression: NSR 66 Labs 11/10/23 12:54 11/10/23 12:54 Labs: Laboratory Results - last 24 hr 11/10/23 11/10/23 11/10/23 12:54 13:47 15:56 WBC 5.4 RBC 4.65 Hgb 13.0 Hct 39.4 MCV 84.9 MCH 28.1 MCHC 33.1 RDW 15.7 H Plt Count 175 Neut % (Auto) 39.0 L Lymph % (Auto) 38.3 [place] % (Auto) 13.1 Eos % (Auto) 8.3 H Baso % (Auto) 1.3 Neut # (Auto) 2100 Lymph # (Auto) 2100 [place] # (Auto) 700 Eos # (Auto) 400 Baso # (Auto) 100 PT 10.6 INR 0.9 APTT 35 Sodium 136 L Potassium 3.5 Chloride 103 Carbon Dioxide 25 BUN 20 H Creatinine 0.64 Estimated GFR > 60 BUN/Creatinine Ratio 31.3 H Glucose 97 Calcium 9.4 Magnesium 2.1 Total Bilirubin 0.8 AST 48 H ALT 24 Alkaline Phosphatase 70 Total Creatine Kinase Cancelled 70 Troponin I Cancelled < 0.012 < 0.012 NT-Pro-B Natriuret Pep 53 Total Protein 7.1 Albumin 4.2 Globulin 2.9 Albumin/Globulin Ratio 1.4 Lipase 73 Assessment & Plan Assessment and plan (1) Chest pain: Qualifiers: Chest pain type: unspecified Qualified Code(s): R07.9 - Chest pain, unspecified Status: Acute (2) Essential hypertension: Status: Acute (3) Coronary artery disease: Qualifiers: Coronary Disease-Associated Artery/Lesion type: [place] artery [place] vs. transplanted heart: [place] heart Associated angina: without angina Qualified Code(s): I25.10 - Atherosclerotic heart disease of [place] coronary artery without angina pectoris Status: Acute (4) GERD (gastroesophageal reflux disease): Qualifiers: Esophagitis presence: without esophagitis Qualified Code(s): K21.9 - Gastro-esophageal reflux disease without esophagitis Status: Acute (5) Asthma: Qualifiers: Asthma severity: mild Asthma persistence: intermittent Asthma complication type: uncomplicated Qualified Code(s): J45.20 - Mild intermittent asthma, uncomplicated Status: Acute (6) Mixed hyperlipidemia: Status: Acute (7) Obstructive sleep apnea (adult) (pediatric): Status: Acute (8) Obesity (BMI 35.0-39.9 without comorbidity): Status: Acute (9) Impaired fasting glucose: Status: Acute Assessment & Plan narrative: 1. Chest Pain / HLD / CAD - Echocardiogram pending - cardiology evaluation, stress test - ASA, statin, telemetry monitoring 2. HTN - Norvasc, HCTZ 3. Hx of impaired fasting glucose - A1C pending 4. Obesity - TSH pending 5. Asthma - prn albuterol, singulair 6. GERD - PPI DVT prophylaxis - Lovenox
[2023-11-11 00:08] VITALS: BP 112/65; PULSE 71; RESP 19; TEMP 36.2; O2SAT 96
[2023-11-11] MEDS: HYDROCODONE/ACET 5/325 TABLET 1 TAB PO (02:26)
[2023-11-11 04:49] VITALS: BP 113/63; PULSE 75; RESP 19; TEMP 36.1; O2SAT 97
[2023-11-11 05:36] LABS: Add Manual Diff / Slide Review NO; Basophils Absolute Auto 100 /uL (0-100); Basophils Percent Auto 1.4 % (0-2); Eosinophils Absolute Auto 600 /uL (0-450); Eosinophils Percent Auto 11.1 % (2-4); Hematocrit 36.2 % (36-46); Hemoglobin 12.1 g/dL (12.0-16.0); Lymphocytes Absolute Auto 2000 /uL (1100-4500); Lymphocytes Percent Auto 38.8 % (25-40); Mean Corpuscular HGB Conc 33.5 % (30-36); Mean Corpuscular Hemoglobin 28.2 PG (26-34); Monocytes Absolute Auto 700 /uL (0-900); Monocytes Percent Auto 12.5 % (3-14); Neutrophils Absolute Auto 1900 /uL (1500-7000); Neutrophils Percent Auto 36.2 % (50-75); Platelet Count 184 X10^3/uL (150-400); Red Cell Distribution Width 15.8 % (11.6-14.8); White Blood Cell Count 5.3 X10^3/uL (4.5-11.0)
[2023-11-11 05:50] LABS: BUN Creatinine Ratio 27.2 (6-22); Blood Urea Nitrogen 22 mg/dL (7-17); Carbon Dioxide 32 mmol/L (22-32); Chloride 99 mmol/L (98-107); Cholesterol 155 mg/dL (140-199); Estimated Glomerular Filt Rate > 60 mL/min (>60); Glucose 112 mg/dL (80-110); HDL Cholesterol 91 mg/dL (40-60); HEMOLYSIS < 15 (0-50); LDL Cholesterol Calculated 46 mg/dL (<100); Potassium 3.3 mmol/L (3.4-5.1); Sodium 136 mmol/L (137-145); Triglycerides 88 mg/dL (35-150)
[2023-11-11 05:53] LABS: Hemoglobin A1C% w Est Avg Glu 5.5 % (4.0-6.0)
[2023-11-11] MEDS: ONDANSETRON 4 MG/2 ML INJ IV ×2 (06:28→11:20)
[2023-11-11] MEDS: ACETAMINOPHEN 325 MG TABLET 650 MG PO (06:46)
[2023-11-11 08:00] VITALS: BP 117/62; PULSE 68; RESP 16; TEMP 36.3; O2SAT 98
[2023-11-11] MEDS: hydroCHLOROthiazide 25 MG TABLET PO (08:23)
[2023-11-11] MEDS: ENOXAPARIN 40 MG/0.4 ML SYRINGE SUBCUT (08:23)
[2023-11-11] MEDS: ASPIRIN EC 81 MG TABLET PO (08:23)
[2023-11-11] MEDS: ATORVASTATIN 20 MG TABLET PO (08:23)
[2023-11-11] MEDS: AMLODIPINE 5 MG TABLET PO (08:23)
[2023-11-11] MEDS: PANTOPRAZOLE DR 40 MG TABLET PO (08:23)
[2023-11-11] MEDS: MONTELUKAST 10 MG TABLET PO (08:55)
[2023-11-11] MEDS: estradioL 1 MG TABLET PO (08:55)
[2023-11-11] MEDS: POTASSIUM CHLORIDE 20 MEQ TAB 40 MEQ PO ×2 (11:20→16:09)
[2023-11-11 13:00] VITALS: BP 127/63; PULSE 77; RESP 16; TEMP 36.6; O2SAT 99
--- NOTE | 2023-11-11 13:14 | DI.NM.S_ITS ---
DATE OF SERVICE: 11/11/2023 PROCEDURE: Pharmacological perfusion study INDICATIONS: Chest pain with known history of CAD, hypertension, hyperlipidemia. RADIOPHARMACEUTICAL: 26.4 mCi technetium-99m Myoview IV was injected at stress and 11.1 mCi technetium-99m Myoview IV was injected at rest. CARDIAC STRESS: The patient underwent pharmacological perfusion study under the supervision of an attending staff. She received IV Lexiscan as per protocol. She remained hemodynamically stable. Resting blood pressure of 136/80. Baseline rhythm was sinus. During stress, no convincing ischemic changes seen. No significant arrhythmias. During Lexiscan, she had minimal dyspnea and lightheadedness. No chest pain. RAW DATA: There was adequate myocardial intake. GATED STUDY: Stress LV ejection fraction 80% without any significant wall motion abnormalities. Resting end-diastolic volume 75 mL. TID ratio 1.14, which is within normal limits. Lung/heart ratio 0.28, which is within normal limits. MYOCARDIAL PERFUSION: Stress supine, resting supine, and stress prone images were compared to each other. Resting supine images revealed minimally decreased perfusion of distal anterior wall, however, stress supine and stress prone images revealed almost normal myocardial perfusion. No convincing ischemia or infarction. CONCLUSION: I will call this study a normal myocardial perfusion study. Summed stress score is zero. No convincing ischemia or infarction. Preserved LV function. Overall, low-risk myocardial perfusion scan. The patient had a perfusion study in January,. At that time, also had normal myocardial perfusion and evidence of breast tissue attenuation artifact. Faith Davison - VIET/radha/sushma doc#: [id number]/job#: [id number] dd: 11/11/2023 12:56:00 dt: 11/11/2023 13:04:00 DICTATING MD/COPIES TO: Noreen Miller MD COPIES MNE: KYLE;
--- NOTE | 2023-11-11 15:32 | CM.DANOTE ---
Initial DCP Assessment Note Pt is a 68 yo female, resident of [place], arrives with CP, admitted OBS for CP r/o PCP: Edgar Stockton Payer: MCR/VIVP Reviewed chart, pt discussed in multidisciplinary rounds this morning. Patient is expected to discharge later today after echo and stress test. No barriers identified at this time to patient's safe discharge home w/family to assist; close outpatient f/u recommended. CM team will plan to follow closely in case any DC needs or concerns arise. JUAN C Antony Discharge Planning/Care Management Advanced directive, confirm from FAMILY Start: 11/10/23 18:59 Freq: Q24H Status: Active Protocol: Document 11/10/23 18:59 CM (Rec: 11/10/23 18:59 CM [id number]) Advance Directive, confirm on record Time 18:59 Person contacted Pt Copy received No CM Discharge Assessment Start: 11/11/23 15:01 Freq: Status: Active Protocol: Document 11/11/23 15:02 ROSHAN (Rec: 11/11/23 15:32 ROSHAN [id number]) Discharge Planning Assessment Assigned Seo Consultant JUAN C Guaman DPOA/Assigned Designee Name Vasile Davison, spouse Contact Information [phone] Advance Directives? Yes Advance Directives on File No History Provided By Patient,Significant Other Prior Living Arrangements House Household Members spouse Type of transporation used prior to Drives own vehicle admit Independent with ADL's Yes Is patient alert and oriented? Yes Barriers to Discharge No Discharge Plan Home Transportation Arrangement Family Referrals Initiated None needed
[2023-11-11 17:00] VITALS: BP 126/62; PULSE 76; RESP 16; TEMP 36.6; O2SAT 99
--- NOTE | 2023-11-11 17:56 | PM.DS.1 ---
History of Present Illness History of Present Illness Chief complaint: CHEST PAIN Narrative: 68 y/o with PMH of CAD, followed by , presented to ED with 3-day history of chest pain. left-sided chest pain that radiates to the jaw the back the arm at variable times, duration at the most 5 minutes. No sweating no nausea no dizziness no diaphoresis. Patient has history of non-STEMI in 2018. No stents were placed, this was in [place]. Patient sees [facility] cardiology, dr Schultz,, office visit July 2023, from the ED. On that visit she was taken off Plavix. Currently on statin and BB. Last nuclear stress test in 2019, apparently. Last cardiology testing was Zio patch that did not register arrhythmia, 3 months ago. Placed in observation on telemetry with 2 negative troponins and w/o acute ischemic EKG changes but with clinical angina for further evaluation. Discharge Providers Provider Date of admission: 11/10/23 17:30 Discharge Date: 11/11/23 Primary care physician: Edgar Stockton MD Discharge provider: Lukasz Aceves DO Summary Hospital Course Discharge Diagnosis: 1. Chest Pain / HLD / CAD 2. HTN 3. Hx of impaired fasting glucose 4. Obesity 5. Asthma 6. GERD Hospital Course: Admitted for chest pain. Underwent nuclear stress test, echo, EKG and troponins which were all normal. She will f/up with her PCP tomorrow and Dr. Jesica SHEPHERD [employer] later this week. Exam Vital Signs (past 8 hours): - 11/11/23 13:00 Temperature 97.8 F Pulse Rate 77 Respiratory Rate 16 Blood Pressure 127/63 Pulse Oximetry 99 Oxygen Delivery Method Room Air Oxygen Flow Rate 0 Const Other: Laying in bed in no distress, at bedside Neck Other: w/o JVD Resp Other: CTA Cardio Other: RRR Skin Other: w/o rashes Neuro Other: w/o deficits Extrem Other: w/o swelling Psych Other: appropriate mood, lucid Objective Labs 11/11/23 05:12 11/11/23 05:12 Labs: Laboratory Results - last 24 hr 11/11/23 05:12 WBC 5.3 RBC 4.30 Hgb 12.1 Hct 36.2 MCV 84.0 MCH 28.2 MCHC 33.5 RDW 15.8 H Plt Count 184 Neut % (Auto) 36.2 L Lymph % (Auto) 38.8 [place] % (Auto) 12.5 Eos % (Auto) 11.1 H Baso % (Auto) 1.4 Neut # (Auto) 1900 Lymph # (Auto) 2000 [place] # (Auto) 700 Eos # (Auto) 600 H Baso # (Auto) 100 Sodium 136 L Potassium 3.3 L Chloride 99 Carbon Dioxide 32 BUN 22 H Creatinine 0.81 Estimated GFR > 60 BUN/Creatinine Ratio 27.2 H Glucose 112 H Hemoglobin A1c 5.5 Calcium 9.0 Triglycerides 88 Cholesterol 155 LDL Cholesterol, Calc 46 HDL Cholesterol 91 H TSH 6.20 H PFSH Medical History Gait instability BPPV (benign paroxysmal positional vertigo) Primary osteoarthritis involving multiple joints Gastric mass Fractures Foot pain (~1999) Carpal tunnel syndrome (~2001) Mumps Measles Vertigo (~2017) Tinnitus [place] (nonalcoholic steatohepatitis) Bilateral tinnitus Left knee pain Generalized anxiety disorder SVT (supraventricular tachycardia) History of colon polyps Obesity (BMI 35.0-39.9 without comorbidity) Obstructive sleep apnea (adult) (pediatric) Impaired fasting glucose Mixed hyperlipidemia Essential hypertension Non-ST elevated myocardial infarction Coronary artery disease GERD (gastroesophageal reflux disease) Asthma (~1979) Rotator cuff injury Tenosynovitis Heart attack Surgical History Anesthesia S/P left rotator cuff repair (~2019) History of cataract removal with insertion of prosthetic lens (~2011) Tenosynovitis (~2004) S/P wrist surgery S/P right rotator cuff repair (~2000) History of oophorectomy (~1969) History of hysterectomy (~1988) History of appendectomy Family History Father History of heart disease Mother Diabetes mellitus Hypertension Brother Cancer Sister Hypochondria Social History marital status: household members: spouse travel history: recent Smoking Status: Never smoker alcohol intake: current substance use type: does not use Discharge Plan Discharge Plan Patient Disposition: Home Provider Discharge Comment: All of your chest pain workup was reassuring including EKG, echo, stress test and troponins. Discharge orders & Medications Prescriptions: Continued metoprolol tartrate 25 mg tablet 25 mg PO DAILY PRN (Reason: palpitations) benzonatate 100 mg capsule 100 mg PO BID PRN (Reason: cough) Qty: 28 0RF acyclovir 200 mg capsule 200 mg PO TID PRN (Reason: Rash) Qty: 30 0RF albuterol sulfate 90 mcg/actuation HFA aerosol inhaler 1 puff inhalation BID PRN (Reason: Wheezing) montelukast 10 mg tablet 10 mg PO DAILY Qty: 90 3RF pantoprazole 40 mg tablet,delayed release (DR/EC) 40 mg PO BID Qty: 180 3RF estradiol 1 mg tablet 1 mg PO DAILY Qty: 90 3RF atorvastatin 20 mg tablet 20 mg PO DAILY Qty: 90 3RF amlodipine 5 mg tablet 5 mg PO DAILY Qty: 90 3RF hydrochlorothiazide 25 mg tablet 25 mg PO DAILY Qty: 90 3RF nitroglycerin 0.4 mg tablet, sublingual 0.4 mg sublingual PRN PRN (Reason: Chest Pain) Qty: 30 5RF Follow up/Referrals: Edgar Stockton MD [Primary Care Provider] - 2 Weeks Visit Report/Discharge Packet Instructions: Echocardiogram, DI for Cardiac Stress Test, How to Prevent Falls, DI for Chest Pain Stand Alone Forms: Patient Portal/API, Stroke Signs & Symptoms Discharge Data Primary Care Provider: Edgar Stockton V Attending Provider: Lukasz Aceves Admit Date/Time: 11/10/23 17:30
--- NOTE | 2023-11-11 18:55 | PC.NURSE ---
Discharge: Seen by MD Aceves, he gave pt discharge instructions. She wants to go home and is c/p free. Very sl headache only poss from ntg. Discharge packet given and reviewed. No new rx. Questions answered. Pt d/c to home via auto w/spouse.
[2023-11-13 03:51] LABS: Free T4, Direct Thyroxine 1.17 ng/dL (0.78-2.19)
== END 2023-11-11 18:45 | disposition home or self-care (01) ==
LOC: ED 17:28 → AC 17:31
PROVIDERS: Internal Medicine; Internal Medicine Gastroenterology; Admitting Provider Student in an Organized Health Care Education/Training Program; Emergency Provider Emergency Medicine; PCP Internal Medicine; Visit Provider Student in an Organized Health Care Education/Training Program
DX: R07.9 Chest pain, unspecified (principal); I10 Essential (primary) hypertension; K21.9 Gastro-esophageal reflux disease without esophagitis; J45.20 Mild intermittent asthma, uncomplicated; E78.2 Mixed hyperlipidemia; G47.33 Obstructive sleep apnea (adult) (pediatric); E66.9 Obesity, unspecified; R73.01 Impaired fasting glucose; I25.10 Atherosclerotic heart disease of native coronary artery without angina pectoris; I25.2 Old myocardial infarction
CPT/HCPCS: 36415; 71045; 78452; 80048; 80053; 80061; 82550; 83036; 83690; 83735; 83880; 84439; 84443; 84484; 85025; 85610; 85730; 93005; 93010; 93017; 93306; 96372; 96374; 96376; 99284; G0378; A9502; J1650; J2405; J2785

== ENCOUNTER → 2023-11-12 10:22 | Outpatient (CLI) | payer MEDICARE, SELFPAY ==
[2023-11-10 18:45] VITALS: BMI 32.8
== END ==
LOC: LAB 10:24
PROVIDERS: PCP Internal Medicine; Referring Provider Nurse Practitioner Family; Visit Provider Nurse Practitioner Family
DX: R00.2 Palpitations (principal); R53.83 Other fatigue
CPT/HCPCS: 36415; 84443

== ENCOUNTER → 2023-12-25 17:07 | Outpatient (CLI) | payer MEDICARE, SELFPAY ==
[2023-11-10 18:45] VITALS: BMI 32.8
--- NOTE | 2023-12-25 17:09 | DI.RAD.S_ITS ---
PROCEDURE: XR CHEST 2V INDICATIONS: COVID positive, dyspnea TECHNIQUE: 2 views of the chest were acquired. COMPARISON: [facility], , XR CHEST 1V, 11/10/2023, 12:25. FINDINGS: Surgical changes and devices: None. Lungs and pleura: Lungs are clear. No pleural effusions or pneumothorax. Mediastinum: Mediastinal contours are normal. Heart size is normal. Bones and chest wall: No suspicious bony abnormalities. Soft tissues appear unremarkable. IMPRESSION: No acute cardiopulmonary pathology. Dictated by: Trey Alonzo M.D. on 12/25/2023 at 17:36 Approved by: Trey Alonzo M.D. on 12/25/2023 at 17:36
== END ==
PROVIDERS: PCP Internal Medicine; Referring Provider Physician Assistant Surgical; Visit Provider Physician Assistant Surgical
DX: U07.1 COVID-19 (principal); R05.9 Cough, unspecified; R09.89 Other specified symptoms and signs involving the circulatory and respiratory systems
CPT/HCPCS: 71046

== ENCOUNTER → 2024-01-26 12:05 | Outpatient (CLI) | payer MEDICARE, SELFPAY ==
[2023-11-10 18:45] VITALS: BMI 32.8
--- NOTE | 2024-01-26 12:06 | DI.MG.S_ITS ---
BILATERAL DIGITAL SCREENING MAMMOGRAM 3D/2D WITH CAD: 01/26/2024 CLINICAL: Routine screening. Comparison is made to exams dated: 10/30/2022 mammogram, 09/24/2021 mammogram - [facility], and 12/26/2011 mammogram - [facility]. There are scattered areas of fibroglandular density in both breasts (category b / 25%-50% glandular tissue). Current study was also evaluated with a Computer Aided Detection (CAD) system. There is a round equal density asymmetry with an obscured margin in the right breast anterior depth lateral region seen on the craniocaudal view only. This is more prominent and increased in size. No other significant masses, calcifications, or other findings are seen in either breast. IMPRESSION: INCOMPLETE: NEEDS ADDITIONAL IMAGING EVALUATION The round equal density asymmetry in the right breast is indeterminate. Additional views with possible ultrasound are recommended. Based on the Tyrer Cuzick model (a risk assessment model) the patient's lifetime risk is 4.3% and her 10 year risk is 2.7%. According to the ACR, ACS, and NCCN guidelines, an annual breast MRI exam along with mammogram is recommended if the patient's lifetime risk is 20% or greater. This exam was interpreted at Station ID: [id number]. NOTE: For mammograms, a report in lay terms will be sent to the patient. Approximately 15% of breast malignancies will not be visualized mammographically. In the management of a palpable breast mass, a negative mammogram must not discourage biopsy of a clinically suspicious lesion. Electronically Signed By: Antonette de leon/francisca:01/26/2024 13:12:40 letter sent: Additional Imaging Needed ACR BI-RADS Category 0: Incomplete 3340F
== END ==
PROVIDERS: PCP Internal Medicine; Referring Provider Internal Medicine; Visit Provider Internal Medicine
DX: Z12.31 Encounter for screening mammogram for malignant neoplasm of breast (principal); R92.323 Mammographic fibroglandular density, bilateral breasts
CPT/HCPCS: 77063; 77067

== ENCOUNTER → 2024-02-09 08:42 | Outpatient (CLI) | payer MEDICARE, SELFPAY ==
[2023-11-10 18:45] VITALS: BMI 32.8
--- NOTE | 2024-02-09 08:43 | DI.MG.S_ITS ---
UNILATERAL RIGHT DIGITAL DIAGNOSTIC MAMMOGRAM 3D/2D WITH ADDITIONAL VIEWS: 02/09/2024 CLINICAL: Additional evaluation requested from prior study. Comparison is made to exams dated: 01/26/2024 mammogram, 10/30/2022 mammogram, and 09/24/2021 mammogram - [facility]. There are scattered areas of fibroglandular density in the right breast (category b / 25%-50% glandular tissue). There is a round equal density asymmetry with an obscured margin in the right breast middle depth lateral region seen on the craniocaudal view only. This is similar to prior mammograms. There was an adjacent oval, obscured asymmetry slightly posterior to this that is not seen on today's additional views. No other significant masses or calcifications are seen in the breast. IMPRESSION: INCOMPLETE: NEEDS ADDITIONAL IMAGING EVALUATION The oval equal density asymmetry in the right breast resembles a lymph node that has likely been present on prior studies and the adjacent possible developing asymmetry is not confirmed on today's additional views. This is indeterminate. An ultrasound is recommended for further evaluation and is scheduled to immediately follow this examination. Based on the Tyrer Cuzick model (a risk assessment model) the patient's lifetime risk is 4.3% and her 10 year risk is 2.7%. According to the ACR, ACS, and NCCN guidelines, an annual breast MRI exam along with mammogram is recommended if the patient's lifetime risk is 20% or greater. This exam was interpreted at Station ID: [id number]. NOTE: For mammograms, a report in lay terms will be sent to the patient. Approximately 15% of breast malignancies will not be visualized mammographically. In the management of a palpable breast mass, a negative mammogram must not discourage biopsy of a clinically suspicious lesion. Electronically Signed By: Godfrey Davis M.D. aty/:02/09/2024 09:50:25 ACR BI-RADS Category 0: Incomplete 3340F
--- NOTE | 2024-02-09 08:44 | DI.US.S_ITS ---
LIMITED ULTRASOUND OF RIGHT BREAST AND AXILLA: 02/09/2024 CLINICAL: Patient returns today to evaluate a focal asymmetry in the right breast. Comparison is made to exams dated: 02/09/2024 mammogram, 01/26/2024 mammogram, and 10/30/2022 mammogram - [facility]. Color flow and real-time ultrasound of the right breast 9 o'clock, and axilla regions were performed. Chapman scale images of the real-time examination were reviewed. There is a 0.5 cm x 0.6 cm x 0.6 cm irregular mass with an angular margin in the right breast at 9 o'clock middle depth 5 cm from the nipple. This irregular mass is hypoechoic with posterior acoustic shadowing. This correlates with mammography findings. Color flow imaging demonstrates that there is no vascularity present. No significant abnormalities were seen sonographically in the right axilla. IMPRESSION: SUSPICIOUS OF MALIGNANCY The 0.5 cm x 0.6 cm x 0.6 cm irregular mass in the right breast is suspicious of malignancy. An ultrasound guided biopsy is recommended. No sonographic abnormalities identified in the axilla. No axillary adenopathy. Findings and recommendations were discussed with the patient by Dr. Dowell during today's examination. This exam was interpreted at Station ID: [id number]. Electronically Signed By: Godfrey Davis M.D. aty/:02/09/2024 09:58:51 letter sent: Biopsy Required Ultrasound BI-RADS: 4 Suspicious for malignancy
== END ==
PROVIDERS: PCP Internal Medicine; Referring Provider Internal Medicine; Visit Provider Internal Medicine
DX: R92.8 Other abnormal and inconclusive findings on diagnostic imaging of breast (principal); N63.15 Unspecified lump in the right breast, overlapping quadrants; R92.321 Mammographic fibroglandular density, right breast
CPT/HCPCS: 76642; 77065; G0279

== ENCOUNTER → 2024-02-11 | Outpatient (CLI) | payer MEDICARE, SELFPAY ==
[2023-11-10 18:45] VITALS: BMI 32.8
--- NOTE | 2024-02-11 07:36 | DI.MG.S_ITS ---
UNILATERAL RIGHT DIGITAL DIAGNOSTIC MAMMOGRAM 3D/2D: 02/11/2024 CLINICAL: Post right breast ultrasound biopsy, clip placement imaging. Comparison is made to exams dated: 02/09/2024 mammogram, 01/26/2024 mammogram, 10/30/2022 mammogram, and 09/24/2021 mammogram - [facility]. There are scattered areas of fibroglandular density in the right breast (category b / 25%-50% glandular tissue). There is a marker clip in the appropriate position in the right breast middle depth central to the nipple seen on the craniocaudal view only. This marker clip placement is at the biopsy site. IMPRESSION: POST PROCEDURE MAMMOGRAM FOR MARKER PLACEMENT There was a successful marker clip placement in the right breast middler depth central to the nipple seen on the craniocaudal view only. Based on the Tyrer Cuzick model (a risk assessment model) the patient's lifetime risk is 4.3% and her 10 year risk is 2.7%. According to the ACR, ACS, and NCCN guidelines, an annual breast MRI exam along with mammogram is recommended if the patient's lifetime risk is 20% or greater. This exam was interpreted at Station ID: [id number]. NOTE: For mammograms, a report in lay terms will be sent to the patient. Approximately 15% of breast malignancies will not be visualized mammographically. In the management of a palpable breast mass, a negative mammogram must not discourage biopsy of a clinically suspicious lesion. Electronically Signed By: Aletha George M.D. [facility]/:02/11/2024 23:27:22 ACR BI-RADS Category Post-procedure mammogram for marker placement
--- NOTE | 2024-02-11 07:36 | DI.US.S_ITS ---
ULTRASOUND GUIDED BIOPSY RIGHT BREAST USING VACUUM DEVICE WITH MARKING DEVICE INSERTED: 02/11/2024 CLINICAL: Right breast mass. PATIENT CONSENT: Risks (minor bleeding, infection, vasovagal reaction and repeat procedure), benefits and alternatives were explained to the patient and written informed consent was obtained. Correlation is made to exams dated: 02/11/2024 mammogram, 02/09/2024 ultrasound, 02/09/2024 mammogram, 01/26/2024 mammogram, 10/30/2022 mammogram, and 09/24/2021 mammogram - [facility]. An ultrasound guided biopsy using real-time ultrasound was performed for the irregular shaped mass located in the right breast at 9 o'clock middle depth. This was described on the previous mammography and ultrasound reports. The skin was prepped in the usual manner. Local anesthetic was administered to the access site. A skin maxine was made in the breast. The abnormality was approached from the lateral aspect. A biopsy needle was placed adjacent to the abnormality under ultrasound guidance. Once the needle was documented to be in the correct location, a specimen was obtained using the Mammotome biopsy system. The patient received additional topical anesthetic during the procedure. A titanium clip was inserted into the biopsy cavity. A sterile dressing was applied to the access site. The specimen was sent to the laboratory for pathological analysis. IMPRESSION: ULTRASOUND GUIDED BIOPSY HIGH RISK BENIGN Ultrasound guided biopsy of the mass in the right breast at 9 o'clock middle depth was successful. Pathology revealed features worrisome for , but not diagnostic of, atypical ductal hyperplasia (ADH). The remaining fragments of breast parenchyma demonstrate features consistent with usual ductal hyperplasia. Pathology is high risk and concordant with imaging. Recommend surgical consult for discussion of excisional biopsy. This exam was interpreted at Station ID: [id number]. Aletha Garber M.D., Ph.D. [facility],/:02/19/2024 20:53:21
--- NOTE | 2024-02-11 09:16 | PATH_ITS ---
[facility] Accession Number: [id number] No. of containers..01 Tissue . 01 Material submitted: . breast - RIGHT BREAST 9:00 5 CMFN . 01 Diagnosis: RIGHT BREAST 9 O'CLOCK, 5 CM FROM NIPPLE: Minute, detached epithelial fragment with atypia; insufficient atypical tissue volume for ancillary studies. Please see comment. . MRV 02/17/2024 1622 Local . 01 Comment: There is a tiny, detached epithelial tissue fragment with some architectural atypia (cribriforming). The fragment is not present on additional levels or on the IHC-stained slides. Features are worrisome for, but not diagnostic of, atypical ductal hyperplasia. The remaining fragments of breast parenchyma demonstrate features consistent with usual ductal hyperplasia. Close followup is recommended to ensure adequate sampling of the region of concern. Additional sampling could be considered, in the appropriate clinical and imaging setting. . As part of ongoing quality control technician, this case is also reviewed by Dr. Tameka Leos, who agrees with the interpretation. . Dr. Yoly Kent discussed results with Dr. Mahin Doshi's nurse, on 02-17-24 at approximately 4:20 p.m. . 01 Electronically signed: . Yoly Kent MD, Pathologist NPI- [id number] . 01 Gross description: . Received is one formalin-filled container labeled with the patient's name designated right breast 9 o'clock 5 cm FN. The specimen is received with plastic filter in container and consists of multiple fragments of yellow-gill soft tissue and clotted blood which range in size from less than 0.1 cm to 1.4 x 0.4 x 0.3 cm. All fragments are totally submitted in cassette A1. . Possible collection date and time per requisition 02/11/2024 at 9:18 a.m. Total fixation time approximately 18 hours. (DC:[facility] [id number]) /HUYEN 02/12/2024 0559 Local . 01 Microscopic: . An immunohistochemistry panel is performed to further evaluate the cells of interest. The control stains show appropriate reactivity. . RESULTS: E-cadherin: Diffusely and strongly positive. ER: Heterogeneous positivity. CK5/6: Mosaic pattern. . The strong e-cadherin expression supports ductal differentiation. The mosaic pattern of CK5/6 staining and the heterogeneous positivity of estrogen receptor staining supports an interpretation of usual ductal hyperplasia. . * This test was developed and its performance characteristics determined by [employer]. It has not been cleared or approved by the U.S. Food and Drug Administration. The FDA has determined that such clearance or approval is not necessary. This test is used for clinical purposes. It should not be regarded as investigational or for research. . 01 Pathologist provided ICD-10: N63.10 . 01 CPT . 537408, Y05218, U06116 Specimen Comment: A courtesy copy of this report has been sent to Pathology Performed at: [address] [address], [place], [place] [id number] MD Horacio Ortiz MD Phone: [phone]
== END ==
LOC: US 07:35
PROVIDERS: PCP Internal Medicine; Referring Provider Internal Medicine; Visit Provider Internal Medicine
DX: R92.8 Other abnormal and inconclusive findings on diagnostic imaging of breast (principal); N63.10 Unspecified lump in the right breast, unspecified quadrant; R92.321 Mammographic fibroglandular density, right breast
CPT/HCPCS: 19083; 77065

== ENCOUNTER 2024-04-15 08:51 | Emergency (ER) | payer MEDICARE, SELFPAY ==
[2023-11-10 18:45] VITALS: BMI 32.8
[2024-04-15] VITALS (11 sets, daily range): BP systolic 83–192; BP diastolic 51–93; PULSE 80–102; RESP 16–30; TEMP 36.1; O2SAT 92–95; BMI 28.3
--- NOTE | 2024-04-15 09:12 | DI.RAD.S_ITS ---
PROCEDURE: XR CHEST 1V INDICATIONS: chest pain TECHNIQUE: One view of the chest was acquired. COMPARISON: [facility], CR, XR CHEST 2V, 12/25/2023, 17:10. FINDINGS: Surgical changes and devices: None. Lungs and pleura: Patchy bibasilar atelectasis. No pleural effusions or pneumothorax. Mediastinum: Mediastinal contours appear normal. Heart size is normal. Bones and chest wall: No suspicious bony lesions. Overlying soft tissues appear unremarkable. IMPRESSION: Patchy bibasilar atelectasis. Dictated by: Adrian Tam M.D. on 04/15/2024 at 10:01 Approved by: Adrian Tam M.D. on 04/15/2024 at 10:02
--- NOTE | 2024-04-15 09:12 | EKG_ITS ---
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
[2024-04-15] MEDS: ASPIRIN 81 MG CHEW TAB 324 MG PO (09:23)
[2024-04-15] MEDS: NITROGLYCERIN 0.4 MG SL TAB SL (09:23)
[2024-04-15] MEDS: HEPARIN 5,000 UNIT/ML VIAL 4500 UNIT IV (09:24)
[2024-04-15] MEDS: HEPARIN DRIP 25,000 UNIT/500 ML IV.SOLN 18.507 UNIT IV (09:25)
--- NOTE | 2024-04-15 09:25 | EKG_ITS ---
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
--- NOTE | 2024-04-15 09:26 | ED.CHESTPAIN ---
HPI - Chest Pain General Chief Complaint: Chest Pain Stated Complaint: SOB Time Seen by Provider: 04/15/24 09:18 History of Present Illness HPI narrative: Patient is a 68-year-old female history of coronary artery disease without stenting presenting today with chest pain. She reports that she has had some chest discomfort this week it has progressively gotten worse. This morning at 5:00 a.m. she woke up with severe chest pain. She thought it was acid reflux but she did take 2 nitro which did seem to help. No significant shortness of breath but it is difficult for her to walk. On the EKGs she has ST elevation in inferior leads. Related Data Home Medications Medication Instructions Recorded Confirmed albuterol sulfate 90 mcg/actuation 1 puff inhalation BID PRN Wheezing 01/02/22 01/21/24 aerosol inhaler metoprolol tartrate 25 mg tablet 25 mg PO DAILY PRN palpitations 07/04/23 01/21/24 ipratropium bromide 21 mcg (0.03 2 spray intranasal BID-TID PRN 01/21/24 01/21/24 %) nasal spray Previous Rx's Medication Instructions Recorded nitroglycerin 0.4 mg sublingual 0.4 mg sublingual PRN PRN Chest 07/22/23 tablet Pain #30 tabs montelukast 10 mg tablet 10 mg PO DAILY #90 tabs 11/23/23 pantoprazole 40 mg tablet,delayed 40 mg PO BID #180 tabs 11/23/23 release acyclovir 200 mg capsule 200 mg PO TID PRN Rash #30 caps 01/21/24 amlodipine 5 mg tablet 5 mg PO DAILY #90 tabs 01/21/24 atorvastatin 20 mg tablet 20 mg PO DAILY #90 tabs 01/21/24 benzonatate 100 mg capsule 100 mg PO BID-TID PRN cough #30 01/21/24 caps estradiol 1 mg tablet 1 mg PO DAILY #90 tabs 01/21/24 hydrochlorothiazide 25 mg tablet 25 mg PO DAILY #90 tabs 01/21/24 Allergies Allergy/AdvReac Type Severity Reaction Status Date / Time Penicillins Allergy Unknown Verified 01/21/24 07:43 bee pollen Allergy Verified 01/21/24 07:43 codeine Allergy Verified 01/21/24 07:43 iodine Allergy Verified 01/21/24 07:43 latex Allergy Verified 01/21/24 07:43 morphine Allergy Verified 01/21/24 07:43 Sulfa (Sulfonamide Allergy Verified 01/21/24 07:43 Antibiotics) venlafaxine AdvReac Intermediate Verified 01/21/24 07:43 Patient History Medical History Gait instability BPPV (benign paroxysmal positional vertigo) Primary osteoarthritis involving multiple joints Gastric mass Fractures Foot pain (~1999) Carpal tunnel syndrome (~2001) Mumps Measles Vertigo (~2017) Tinnitus [place] (nonalcoholic steatohepatitis) Bilateral tinnitus Left knee pain Generalized anxiety disorder SVT (supraventricular tachycardia) History of colon polyps Obesity (BMI 35.0-39.9 without comorbidity) Obstructive sleep apnea (adult) (pediatric) Impaired fasting glucose Mixed hyperlipidemia Essential hypertension Non-ST elevated myocardial infarction Coronary artery disease GERD (gastroesophageal reflux disease) Asthma (~1979) Rotator cuff injury Tenosynovitis Heart attack Surgical History Anesthesia S/P left rotator cuff repair (~2019) History of cataract removal with insertion of prosthetic lens (~2011) Tenosynovitis (~2004) S/P wrist surgery S/P right rotator cuff repair (~2000) History of oophorectomy (~1969) History of hysterectomy (~1988) History of appendectomy Family History Father History of heart disease Mother Diabetes mellitus Hypertension Brother Cancer Sister Hypochondria Social History marital status: household members: spouse travel history: recent Smoking Status: Never smoker alcohol intake: current substance use type: does not use Smoking Status: Never smoker alcohol intake frequency: holidays/special occasions only Substance Use Type: does not use Exam Initial Vital Signs Initial Vital Signs: Vital Signs Temperature 97.0 F L 04/15/24 09:07 Pulse Rate 100 H 04/15/24 09:07 Respiratory Rate 16 04/15/24 09:07 Blood Pressure 173/86 H 04/15/24 09:07 Pulse Oximetry 95 04/15/24 09:07 Oxygen Delivery Method Room Air 04/15/24 09:07 GENERAL: Alert 68-year-old female appears to not feel well HEENT: Head atraumatic,EOMI, pupils reactive, face symmetric, moist mucous membranes CARDIOVASCULAR: Regular rate and rhythm without murmurs, rubs or gallops. RESPIRATORY: Breath sounds equal bilaterally, no wheezes rales or rhonchi. ABDOMEN: Soft, nontender. Normoactive bowel sounds all 4 quadrants. No guarding or rebound. EXTREMITIES: Normal range of motion, no clubbing or edema. Neurovascularly intact NEUROLOGICAL: Alert and oriented x4. SKIN: Warm, dry, no laceration, no petechiae, no rashes or lesions. Course Orders Ordered: Discontinued Medications Aspirin (Aspirin 81 Mg Chew Tab) 324 mg PO NOW ONE Stop: 04/15/24 09:12 Last Admin: 04/15/24 09:23 Dose: 324 mg Documented By: OLLIE Heparin Sodium (Porcine) (Heparin 5,000 Unit/Ml Vial) 4,500 unit 60 unit/kg (4500 unit) IV NOW ONE Stop: 04/15/24 09:20 Last Admin: 04/15/24 09:24 Dose: 4,500 unit Documented By: OLLIE Heparin Sodium (Porcine) (Heparin 5,000 Unit/Ml Vial) 4,500 unit 60 unit/kg (4500 unit) IV NOW ONE Stop: 04/15/24 09:26 Last Admin: 04/15/24 11:12 Dose: Not Given Documented By: TARAH Heparin Sodium/Dextrose (Heparin Drip) 25,000 unit in 500 mls @ 18.507 mls/hr IV CONT JOSE; Protocol Last Titration: 04/15/24 09:51 Dose: 12 units/kg/hr, 18.507 mls/hr Documented By: OLLIE Co-signed By: PEGGY Admin: 04/15/24 09:25 Dose: 12 units/kg/hr, 18.507 mls/hr Documented By: OLLIE Co-signed By: PEGGY Heparin Sodium/Dextrose (Heparin Drip) 25,000 unit in 500 mls @ 18.507 mls/hr IV CONT JOSE; Protocol Last Admin: 04/15/24 11:12 Dose: Not Given Documented By: TARAH Nitroglycerin (Nitroglycerin) 50 mg in 250 mls @ 1.5 mls/hr IV TITRATE JOSE; Protocol Last Admin: 04/15/24 11:12 Dose: Not Given Documented By: KLS Nitroglycerin (Nitroglycerin 0.4 Mg Sl Tab) 0.4 mg SL [id number] PRN PRN Reason: Chest Pain Last Admin: 04/15/24 09:23 Dose: 0.4 mg Documented By: OLLIE Vital Signs Vital signs: Vital Signs - 8 hr 04/15/24 09:07 Temperature 97.0 F L Pulse Rate 100 H Respiratory Rate 16 Blood Pressure 173/86 H Pulse Oximetry 95 Oxygen Delivery Method Room Air MDM - Chest Pain Lab Data 04/15/24 09:20 04/15/24 09:20 Labs: Lab Results 04/15/24 Range/Units 09:20 WBC 8.4 (4.5-11.0) X10^3/uL RBC 4.75 (4.0-5.2) X10^6/uL Hgb 13.8 (12.0-16.0) g/dL Hct 40.6 (36-46) % MCV 85.5 (80-100) fL MCH 29.0 (26-34) PG MCHC 33.9 (30-36) % RDW 15.7 H (11.6-14.8) % Plt Count 227 (150-400) X10^3/uL Neut % (Auto) 73.9 (50-75) % Lymph % (Auto) 12.9 L (25-40) % [place] % (Auto) 12.2 (3-14) % Eos % (Auto) 0.5 L (2-4) % Baso % (Auto) 0.5 (0-2) % Neut # (Auto) 6200 (7983-1218) /uL Lymph # (Auto) 1100 (5981-6554) /uL [place] # (Auto) 1000 H (0-900) /uL Eos # (Auto) 0 (0-450) /uL Baso # (Auto) 0 (0-100) /uL PT 11.3 (9.4-12.5) SECONDS INR 1.0 (0.9-1.3) APTT 29 (25.1-36.5) SECONDS Sodium 136 L (137-145) mmol/L Potassium 3.3 L (3.4-5.1) mmol/L Chloride 99 (98-107) mmol/L Carbon Dioxide 30 (22-32) mmol/L BUN 19 H (7-17) mg/dL Creatinine 0.85 (0.52-1.04) mg/dL Estimated GFR > 60 (>60) mL/min BUN/Creatinine Ratio 22.4 H (6-22) Glucose 116 H (80-110) mg/dL Calcium 9.9 (8.4-10.2) mg/dL Magnesium 2.0 (1.6-2.3) mg/dL Total Bilirubin 0.5 (0.2-1.3) mg/dL AST 25 (14-36) IU/L ALT 24 (<35) IU/L Alkaline Phosphatase 67 (38-126) U/L Total Creatine Kinase 62 (30-135) U/L Troponin I < 0.012 (0.01-0.034) ng/mL NT-Pro-B Natriuret Pep 145 H (<125) pg/mL Total Protein 8.0 (6.3-8.2) g/dL Albumin 4.5 (3.5-5.0) g/dL Globulin 3.5 (1.7-4.1) g/dL Albumin/Globulin Ratio 1.3 (1.0-2.8) Lipase 55 (23-300) U/L Imaging Data Chest x-ray: Radiologist's Impression: PROCEDURE: XR CHEST 1V INDICATIONS: chest pain TECHNIQUE: One view of the chest was acquired. COMPARISON: [facility], , XR CHEST 2V, 12/25/2023, 17:10. FINDINGS: Surgical changes and devices: None. Lungs and pleura: Patchy bibasilar atelectasis. No pleural effusions or pneumothorax. Mediastinum: Mediastinal contours appear normal. Heart size is normal. Bones and chest wall: No suspicious bony lesions. Overlying soft tissues appear unremarkable. IMPRESSION: Patchy bibasilar atelectasis. Dictated by: Adrian Tam M.D. on 04/15/2024 at 10:01 ECG Data Interpretation: EKG 1. Sinus rhythm ST elevation in lead 1 aVL V5 V6 lead to AVF T-wave inversion and depression in AVR acute changes from previous EKG in November [address] elevation MDM Narrative Medical decision making narrative: 68-year-old female known history of coronary artery disease without stent presenting today with worsening chest pain over last couple of days. She is ST elevation in inferior and lateral leads with depression in AVR. This is an acute change from her most recent EKG in November 2023. She is given aspirin nitro heparin. Nitroglycerin did help her pain but dropped her pressure Chest x-ray no acute cardiopulmonary process Blood work pending Dr. Stone, ED physician at [facility] updated on symptoms test results and accepts patient Critical Care Time Critical Care Time Critical Care Time: Yes Total Critical Care Time: 31 Attestation: The high probability of a clinically significant, sudden or life threatening deterioration of the [cardiovascular] system(s) required my full and direct attention, intervention and personal management. The aggregate critical care time was 31 minutes. This time is in addition to time spent performing reported procedures but includes the following: [x] Data Review and interpretation [x] Patient assessment and monitoring of vital signs [x] Documentation [x] Medication orders and management Discharge Plan Departure Patient Disposition: [facility] Clinical Impression: ST elevation (STEMI) myocardial infarction Prescriptions: No Action metoprolol tartrate 25 mg tablet 25 mg PO DAILY PRN (Reason: palpitations) montelukast 10 mg tablet 10 mg PO DAILY Qty: 90 3RF pantoprazole 40 mg tablet,delayed release (DR/EC) 40 mg PO BID Qty: 180 3RF albuterol sulfate 90 mcg/actuation HFA aerosol inhaler 1 puff inhalation BID PRN (Reason: Wheezing) ipratropium bromide 21 mcg (0.03 %) spray,non-aerosol 2 spray intranasal BID-TID PRN acyclovir 200 mg capsule 200 mg PO TID PRN (Reason: Rash) Qty: 30 2RF amlodipine 5 mg tablet 5 mg PO DAILY Qty: 90 3RF atorvastatin 20 mg tablet 20 mg PO DAILY Qty: 90 3RF estradiol 1 mg tablet 1 mg PO DAILY Qty: 90 3RF benzonatate 100 mg capsule 100 mg PO BID-TID PRN (Reason: cough) Qty: 30 1RF hydrochlorothiazide 25 mg tablet 25 mg PO DAILY Qty: 90 3RF nitroglycerin 0.4 mg tablet, sublingual 0.4 mg sublingual PRN PRN (Reason: Chest Pain) Qty: 30 5RF Referrals: Edgar Stockton MD [Primary Care Provider] -
[2024-04-15 09:27] LABS: Add Manual Diff / Slide Review NO; Basophils Absolute Auto 0 /uL (0-100); Basophils Percent Auto 0.5 % (0-2); Eosinophils Absolute Auto 0 /uL (0-450); Eosinophils Percent Auto 0.5 % (2-4); Hematocrit 40.6 % (36-46); Hemoglobin 13.8 g/dL (12.0-16.0); Lymphocytes Absolute Auto 1100 /uL (1100-4500); Lymphocytes Percent Auto 12.9 % (25-40); Mean Corpuscular HGB Conc 33.9 % (30-36); Mean Corpuscular Volume 85.5 fL (80-100); Monocytes Absolute Auto 1000 /uL (0-900); Monocytes Percent Auto 12.2 % (3-14); Neutrophils Absolute Auto 6200 /uL (1500-7000); Neutrophils Percent Auto 73.9 % (50-75); Platelet Count 227 X10^3/uL (150-400); Red Blood Cell Count 4.75 X10^6/uL (4.0-5.2); Red Cell Distribution Width 15.7 % (11.6-14.8); White Blood Cell Count 8.4 X10^3/uL (4.5-11.0)
[2024-04-15 09:38] LABS: Prothrombin Time 11.3 SECONDS (9.4-12.5)
--- NOTE | 2024-04-15 09:39 | EKG_ITS ---
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
[2024-04-15 09:40] LABS: Alanine Aminotransferase 24 IU/L (<35); Albumin 4.5 g/dL (3.5-5.0); Albumin Globulin Ratio 1.3 (1.0-2.8); Alkaline Phosphatase 67 U/L (38-126); Aspartate Aminotransferase 25 IU/L (14-36); BUN Creatinine Ratio 22.4 (6-22); Bilirubin Total 0.5 mg/dL (0.2-1.3); Blood Urea Nitrogen 19 mg/dL (7-17); Calcium 9.9 mg/dL (8.4-10.2); Carbon Dioxide 30 mmol/L (22-32); Chloride 99 mmol/L (98-107); Creatine Kinase 62 U/L (30-135); Estimated Glomerular Filt Rate > 60 mL/min (>60); Globulin 3.5 g/dL (1.7-4.1); Glucose 116 mg/dL (80-110); HEMOLYSIS < 15 (0-50); Lipase 55 U/L (23-300); PTT Partial Thromboplastin Tim 29 SECONDS (25.1-36.5); Potassium 3.3 mmol/L (3.4-5.1); Sodium 136 mmol/L (137-145)
[2024-04-15 09:51] LABS: NT-proBNP (BNP-Adult 18+) 145 pg/mL (<125); Troponin I < 0.012 ng/mL (0.01-0.034)
== END 2024-04-15 09:55 | disposition short-term general hospital (02) ==
PROVIDERS: Emergency Provider Emergency Medicine; PCP Internal Medicine
DX: I21.3 ST elevation (STEMI) myocardial infarction of unspecified site (principal); R07.9 Chest pain, unspecified; I25.10 Atherosclerotic heart disease of native coronary artery without angina pectoris
CPT/HCPCS: 36415; 71045; 80053; 82550; 83690; 83735; 83880; 84484; 85025; 85610; 85730; 93005; 96365; 96375; 99284; 99291; J1644